=== PATIENT | female | born 1975 | race Caucasian/White ===

== ENCOUNTER 2020-01-16 16:24 | Outpatient (REF) | payer OTHER, SELFPAY | END 2020-01-16 16:25 | disposition home or self-care (01) | LOC: HO.LAB 16:24 | PROVIDERS: Visit Provider Internal Medicine | DX: Z20.828 Contact with and (suspected) exposure to other viral communicable diseases (principal) | CPT/HCPCS: C9803; U0003 ==

== ENCOUNTER 2020-02-06 13:02 | Outpatient (REF) | payer OTHER, SELFPAY ==
--- NOTE | 2020-02-06 | ECG_ITS ---
Test Reason : QTC PROLONGATION Blood Pressure : / mmHG Vent. Rate : 069 BPM Atrial Rate : 069 BPM P-R Int : 150 ms QRS Dur : 078 ms QT Int : 416 ms P-R-T Axes : 028 054 008 degrees QTc Int : 445 ms Normal sinus rhythm with sinus arrhythmia ST & T wave abnormality, consider anterolateral ischemia Abnormal ECG No previous ECGs available Referred By: Joan Tripathi Electronically Signed By:KYLEE STEPHENSON MD
[2020-02-06 14:18] LABS: MANUAL DIFF FLAG NO
[2020-02-06 14:23] LABS: Basophils Percent Auto 0.4 % (0-2); Eosinophils Absolute Auto 0.1 X10*3/uL (0.0-0.4); Eosinophils Percent Auto 0.7 % (0-4); Hematocrit 41.4 % (37-47); Imm Gran Abs Auto 0.02 X10*3/uL (0.00-0.03); Imm Gran Pct Auto 0.3 % (0.0-0.4); Lymphocytes Absolute Auto 1.8 X10*3/uL (1.2-4.9); Lymphocytes Percent Auto 25.5 % (20-40); Mean Corpuscular HGB Conc 33.8 g/dl (31.0-35.0); Mean Corpuscular Hemoglobin 32.1 pg (27.0-33.0); Mean Platelet Volume 9.3 fL (9.4-12.3); Monocytes Absolute Auto 0.4 X10*3/uL (0.1-1.2); Neutrophils Absolute Auto 4.9 X10*3/uL (2.0-8.3); Neutrophils Percent Auto 68.1 % (45-73); Platelet Count 259 X10*3/uL (160-400); Red Blood Count 4.36 X10*6/uL (4.20-5.50); Red Cell Distribution Width 11.9 % (11.0-16.0); White Blood Count 7.1 X10*3/uL (4.8-10.8)
[2020-02-06 14:33] LABS: Estimated Average Glucose 111 mg/dL; Hemoglobin A1c % 5.5 %
[2020-02-06 14:57] LABS: Alanine Aminotransferase 14 U/L (0-31); Albumin Level 4.1 g/dL (3.5-5.0); Alkaline Phosphatase 87 U/L (39-117); Anion Gap 15 (12-20); Aspartate Amino Transferase 17 U/L (5-31); Bilirubin Total 0.9 mg/dL (0.0-1.0); Blood Urea Nitrogen 10 mg/dL (9-16); Calcium 8.6 mg/dL (8.4-10.2); Carbon Dioxide 26 mmol/L (22-29); Chloride 102 mmol/L (96-108); Cholesterol 167 mg/dL; Estimated Glomerular Filt Rate > 60; Glucose Random 91 mg/dL (60-115); HDL Cholesterol 60 mg/dL; Iron 90 mcg/dL (30-160); LDL Cholesterol Calculated 90 mg/dl; Magnesium 1.8 mg/dL (1.6-2.6); Percent Iron Saturation 27 % (15-50); Potassium 4.1 mmol/l (3.3-5.1); Sodium 139 mmol/L (135-145); Total Iron Binding Capacity 329 mcg/dL (228-428); Triglycerides 88 mg/dL; Unsaturated Iron Binding 239 ug/dL
[2020-02-06 15:23] LABS: Ferritin 82 ng/mL (10-250); Free T4 (Free Thyroxine) 0.99 ng/dL (0.71-1.85); Thyroid Stimulating Hormone 1.84 uIU/mL (0.32-4.0); Vitamin D 25-OH Total 27.3 ng/mL (>30)
[2020-02-06 15:37] LABS: Folate > 20.0 ng/mL (> or = 4.0); Vitamin B12 848 pg/mL (200-900)
== END 2020-02-06 13:03 | disposition home or self-care (01) ==
LOC: HO.LAB 13:02
PROVIDERS: PCP Family Medicine; Visit Provider Clinical Nurse Specialist Psychiatric/Mental Health, Adult
DX: F33.2 Major depressive disorder, recurrent severe without psychotic features (principal); F43.10 Post-traumatic stress disorder, unspecified
CPT/HCPCS: 36415; 80053; 80061; 82306; 82607; 82728; 82746; 83036; 83540; 83735; 84439; 84443; 85025; 93005

== ENCOUNTER 2020-02-13 10:45 | Outpatient (RCR) | payer OTHER, SELFPAY ==
[2020-02-03 12:58] VITALS: BMI 38.9
--- NOTE | 2020-02-03 13:13 | PC.ADMIT ---
Patient is a 44 year old female who started PHP today d/t increase in depression and PTSD symptoms and reports AH and VH related to harm herself. Pt reports AH and VH have started for the past year and began to intensify recently. Pt does not want to harm herself thus seeks out safety with her when needed. Pt reports her is supportive however he does not understand depression. Pt stated she is attending PHP because, I don't want to . Pt reports she wants the AH and VH to go away. Pt denied SI, AH, VH at present. She gave verbal permission to email her a copy of her safety plan. 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 She denies hx of SA however reports hx of self harming behaviors, cutting self, last time 2 years ago. Medications reconciled with patient and patient's pharmacy and she reports taking medication as prescribed. She reports recent medication changes with her prescriber including d/t Effexor and is now on Duloxetine. Also Seroquel was recently added back for sleep.
--- NOTE | 2020-02-03 15:52 | HO.PS.ADMBH ---
HPI Chief Complaint: depression Sources of Information: patient interviewed and chart reviewed HPI Narrative: The voices are not my voice. They tell me I don't deserve to live, I make everything worse. I have visual flashes of ways to harm myself. No one else in group has these, do I belong here? 44 yo female, hx of PTSD and severe recurrent major depression. Pt experiencing increasing sx of depression, anxiety and auditory/visual perceptual alterations telling her she does not deserve to live. Reports depression to be like a giant black hole . PTSD sx exacerbated as well including nightmares, flashbacks, visual flashes of methods to take her life, feeling hopeless and helpless, fatigues and having dissociative periods. Reports an increase in sleep as sleep protects her from feeling the emotional pain. Possible precipitants- Effexor change to Cymbalta a few weeks ago Past Psychiatric History: Therapy since 2011. Currently working with therapy at [facility] and psychopharmacology Rufino Kaur. Hx of CHD POD admit for 5 days approx 1 year ago where Abilify was initiated and helpful. Recent titration to 7.5 mg from 5 mg over the past 2 weeks has not been helpful. Trials: Effexor Medical Evaluation Reviewed: No (NA) [facility] Medical History (Updated 02/04/20 @ 12:35 by Joan Tripathi APRN) Arthritis Fibromyalgia PTSD (post-traumatic stress disorder) Recurrent major depression-severe Rotator cuff dysfunction Severe recurrent major depression with psychotic features Surgical History History of sleeve gastrectomy Hx of cholecystectomy Family History: Depression, Psychosis, Alcoholism Social History: , no children. Attending graduate school for [employer]. 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 Substance History: Denies Trauma History: Emotional, Physical, Sexual, Wittness to trauma Diagnostics Vital Signs (24Hr): Body Mass Index 38.9 Labs Labs: Not in ~ 1year. Will order full labs/EKG. Pt to completed 02/04/20 after group is completed. Meds/Allergies Meds Narrative: Cymbalta 60 mg daily Abilify 7.5 mg daily Seroquel 25 mg HS Zyrtec 10 mg daily Folic Acid 1 mg daily Vitamin B12 daily MVI Allergies Allergies Allergy/AdvReac Type Severity Reaction Status Date / Time mint Allergy Itching Verified 02/03/20 12:55 oxycodone AdvReac Hallucinati Verified 02/03/20 12:55 ons Mental Status Exam Mental Status Exam Patient Appearance: Well Grooomed, Fatigued and Appropriate Patient Orientation: Person, Place, Time and Situation Level of Consciousness: Awake, Appropriate and Alert Patient Behavior: Appropriate, Talkative, Cooperative, Anxious, Fatigued, Good Eye Contact and Crying Mood Description: Depressed, Anxious, Nervous and Apprehensive Affect Description: Flat Patient Cognition Impaired: No Ability to Follow Directions: Excellent Speech Pattern: Clear, Perseverating, Spontaneous Speech, Coherent and Soft-Spoken Memory Description: Intact Hallucinations: Auditory (voices telling her others would be better off if she were not here) and Visual (flashes of how to commit suicide) Perceptual Disturbances: Depersonalization and Hallucinations Thought Process: Distracted and Rumination Thought Content: positive for [place], positive for Obsessional Thoughts, positive for Circumstantial, positive for Perseveration, positive for Preoccupation and positive for Suicidal Ideation (passive, without plan or intent) Depressive Symptoms: Increased Anxiety, Diff. Making Decisions, Changes in Appetite, Crying Spells, Sleeping More Than Usual, Loss of Int. in Activity, Feelings of Worthlessness, Hopelessness, Isolating-Friends/Family, Feelings of Guilt, Unhappiness, Thoughts of /Suicide (passive, without plan, intent), Low Self Esteem, Loss of Energy and Difficulty Concentrating Judgement: Good Assessment & Plan Assessment & Plan (1) PTSD (post-traumatic stress disorder): Status: Acute Code(s): F43.10 - Post-traumatic stress disorder, unspecified Assessment and Plan: Continue PHP plan of care Education provided on perceptual alterations. Encouraged pt to discuss these sx in group as part of PTSD sx. (2) Severe recurrent major depression with psychotic features: Status: Acute Code(s): F33.3 - Major depressive disorder, recurrent, severe with psychotic symptoms Assessment and Plan: -Increase Abilify to 15 mg hs. Pt reports intrusive voices, visions which is having an adverse effect on participation in group. On 02/04/20 labs, EKG as pt reports no eval of diagnostics in approx 1 year. Patient educated on: diagnosis, medication risk/benefits and therapeutic strategies Informed Consent: understands and further education needed Reason for continued partial hosp. stay Substantial Risk for: harm to self, inability to function and rapid decompensation Certification I certify that partial hospital treatment is medically necessary due to the symptoms and problems resulting from the patient's mental illness and the failure to treat the patient at the partial hospital level of care would likely result in the patient requiring inpatient psychiatric care which could not be prevented at a less intensive level of care.
--- NOTE | 2020-02-11 14:55 | P.PNPSP_ITS ---
Subjective Subjective Date of Service: 02/11/20 Reason For Visit: depression Interim History: Mee reports auditory perceptual alterations are extinguished. Reports insomnia-asked her to trial Abilify in the a.m. vs hs. She will hold tonights dose and trial the Abilify tomorrow a.m. Discussed sleep sx a few weeks ago with increase in daytime napping, overall increase in sleep, then unable to sleep with discontinuation and re-addition of Seroquel. Plans discharge on 02/12. Has OP appt on 02/16. 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 Cites having to make daily goals and if they are appropriate for her along with participation in discharge planning. States she began the program confused and feels she has been attempting to catch up. She is wondering if she utilized her time well, if she did the program correctly and if she will need to repeat it. The core problem she identifies is feeling different from the rest of the group as only one other person experienced perceptual alterations. Questions if she has enough skills to manage sx and wonders if sx will come back. Discussed tapering back Abilify when she sees her provider next week to achieve maximum beneft with minimal dosing Medication Compliance: Yes Side effects from medications: No Attending Groups: Yes Review of Systems Psychiatric: Reports abnormal sleep pattern, Reports anxiety, Reports depression, Reports hopelessness and Reports irritability Mental Status Exam Mental Status Exam Patient Orientation: Person, Place, Time and Situation Level of Consciousness: Awake, Appropriate and Alert Patient Behavior: Appropriate, Talkative, Cooperative and Anxious Mood Description: Withdrawn, Depressed, Anxious, Angry and Apprehensive Affect Description: Constricted Patient Cognition Impaired: No Ability to Follow Directions: Excellent Speech Pattern: Appropriate, Spontaneous Speech and Coherent Memory Description: Intact Hallucinations: None Delusions: Not Present Thought Process: Intact and Goal Oriented Thought Content: positive for Intact Depressive Symptoms: Increased Anxiety, Insomnia, Diff. Making Decisions, Increased Irritability, Difficulty Sleeping, Feelings of Worthlessness, Hopeles sness, Feelings of Guilt, Unhappiness, Low Self Esteem and Loss of Energy Judgement: Good Diagnostics Vital Signs (24Hr): Body Mass Index 38.9 Assessment & Plan Assessment & Plan (1) Severe recurrent major depression with psychotic features: Status: Acute Code(s): F33.3 - Major depressive disorder, recurrent, severe with psychotic symptoms Assessment and Plan: - Reports auditory perceptual alterations are extinguished. - Reports insomnia - Change timing of Abilify to a.m. Continue at 15 mg -Pt will call tomorrow so we may assess her sleep. (2) PTSD (post-traumatic stress disorder): Status: Acute Code(s): F43.10 - Post-traumatic stress disorder, unspecified Assessment and Plan: - Continue PHP plan of care. Discussed pt's concerns with the team today. She has declined to remain in program longer, citing the need to return to work due to financial constraints. Certification I certify that partial hospital treatment is medically necessary due to the symptoms and problems resulting from the patient's mental illness and the failure to treat the patient at the partial hospital level of care would likely result in the patient requiring inpatient psychiatric care which could not be prevented at a less intensive level of care. Greater than 50% of the session was spent on counseling and/or coordination of care Discharge Plan Discharge Attending provider: Alexander Mock Medications: No Action quetiapine [Seroquel] 25 mg Tablet 25 mg PO BEDTIME RF: 0 Flintstones Multivitamin Tablet,Chewable 1 tab PO DAILY RF: 0 aripiprazole [Abilify] 15 mg Tablet 7.5 mg PO BEDTIME RF: 0 duloxetine 60 mg Capsule,Delayed Release(Dr/Ec) 60 mg PO DAILY RF: 0 Zyrtec 10 mg Capsule 10 mg PO BEDTIME RF: 0 Telehealth Telehealth Location of provider rendering services: practice address Location of patient: address on file Patient Identification confirmed using: Name, : Yes Telehealth method: voice only Patient verbally consented to treatment: Yes Patient verbally consented to billing insurance company: Yes Patient informed of any privacy concerns related to visit: Yes
--- NOTE | 2020-02-12 09:18 | PC.NURSE ---
Pt did not attend morning meeting. LM for pt to call back.
--- NOTE | 2020-02-12 11:01 | PC.NURSE ---
Pt did picking supervisor on a second attempt. Called pt's (emergency contact) who had pt get on the phone. She reported she had not slept and didn't hear her phone. She reported she is safe but had to get some sleep. She will be in tomorrow.
--- NOTE | 2020-02-13 12:28 | HO.PHPPROGNO ---
Subjective Subjective Date of Service: 02/13/20 Reason For Visit: depression Interim History: Mee continues to report insomnia. Reports that her usual sleep pattern is to begin to feel tired around 6:30pm, to bed by 7-8pm asleep usually by 9pm, awake 1-2 times for fluids, snacks and to use the bathroom, then awake for the day by 6am. Reports no caffeine after 2pm, no evening alcohol or nicotine, no exercise activity prior to sleep, no devices after 6:30pm with blue light, no large meals (s/p bariatric surgery). Pt reports these episodes of insomnia occur at least a few times per year. Encouraged pt to track these to possibly identify a pattern. Reports when she retires and goes to bed she has many anxious thoughts that make her mind wander and make her feel surreal , she will recall something, relate it to something she saw on TV, relate that to something someone said to her and her mind wanders. Denies worry of any sort at the present time. 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 Class was completed at 6:30pm, she attended a winter concert on line at 7pm and was in bed by 8pm. She was awake until 2am, reports 1-2 hours sleep then awake by 4:30am. She did take Abilify yesterday a.m. dozed for 2 hours then was awake for the day. She did not take Abilify today. Discussed medication, medical, therapy intervention for sx. Discussed a combination of treatments to assist in sx mgt, not just medications. Sleep hygiene reviewed. Medication Compliance: No Side effects from medications: No Attending Groups: Yes Review of Systems Constitutional: Reports difficulty sleeping Psychiatric: Reports abnormal sleep pattern and Reports depression Mental Status Exam Mental Status Exam Patient Orientation: Person, Place, Time and Situation Level of Consciousness: Awake, Appropriate and Alert Patient Behavior: Appropriate, Passive and Timid Mood Description: Anxious, Nervous and Apprehensive Affect Description: Constricted Patient Cognition Impaired: No Ability to Follow Directions: Good Speech Pattern: Clear, Appropriate, Spontaneous Speech, Coherent and Soft-Spoken Memory Description: Intact Hallucinations: None Delusions: Not Present Thought Process: Intact and Distracted Thought Content: positive for Intact, positive for [place] and positive for Circumstantial Depressive Symptoms: Insomnia, Difficulty Sleeping and Low Self Esteem Judgement: Fair Diagnostics Vital Signs (24Hr): Body Mass Index 38.9 Labs Labs: completed. Sent to PCP today (Labs, EKG) by Courtney Lopez RN Assessment & Plan Assessment & Plan (1) Severe recurrent major depression with psychotic features: Status: Acute Code(s): F33.3 - Major depressive disorder, recurrent, severe with psychotic symptoms (2) PTSD (post-traumatic stress disorder): Status: Acute Code(s): F43.10 - Post-traumatic stress disorder, unspecified (3) Insomnia: Status: Acute Code(s): G47.00 - Insomnia, unspecified Assessment and Plan: - Decrease Abilify to 7.5 mg. Return dosing to HS. -Increase Seroquel to 50 mg HS -Ramelteon 8 mg hs prn insomnia #7 tabs -Call to PCP, Dr. Vega's office to request sleep eval. They agree and will call pt when they schedule this. -Education provided RE Sleep Hygiene and use of therapies to assist in symptom mgt. Certification I certify that partial hospital treatment is medically necessary due to the symptoms and problems resulting from the patient's mental illness and the failure to treat the patient at the partial hospital level of care would likely result in the patient requiring inpatient psychiatric care which could not be prevented at a less intensive level of care. Greater than 50% of the session was spent on counseling and/or coordination of care Discharge Plan Discharge Attending provider: Alexander Mock Medications: New ramelteon 8 mg tablet 8 mg PO BEDTIME PRN (Reason: sleep) Qty: 7 RF: 0 No Action quetiapine [Seroquel] 25 mg Tablet 25 mg PO BEDTIME RF: 0 Flintstones Multivitamin Tablet,Chewable 1 tab PO DAILY RF: 0 aripiprazole [Abilify] 15 mg Tablet 7.5 mg PO BEDTIME RF: 0 duloxetine 60 mg Capsule,Delayed Release(Dr/Ec) 60 mg PO DAILY RF: 0 Zyrtec 10 mg Capsule 10 mg PO BEDTIME RF: 0 Telehealth Telehealth Location of provider rendering services: practice address Location of patient: address on file Patient Identification confirmed using: Name, : Yes Telehealth method: voice only Patient verbally consented to treatment: Yes Patient verbally consented to billing insurance company: Yes Patient informed of any privacy concerns related to visit: Yes Time spent with patient (mins): 30
--- NOTE | 2020-02-13 13:15 | PC.NURSE ---
Spoke to Carey STRAUSS from the office of patient's PCP Natasha Vega MD to confirm they received faxed EKG and Labs results. I was told to fax them to a different fax number as it can take a few days to receive with the fax number that I used. New fax number [phone]. They will call me if they did not receive the results. Reviewed EKG results over the phone with Carey STRAUSS as well. Also per [facility] pain clinic patient will need a referral from her PCP. Carey STRAUSS is aware and will review with patient's PCP to obtain a referral for patient.
== END 2020-02-13 23:55 | disposition home or self-care (01) ==
LOC: HO.PHPA 10:45
PROVIDERS: Visit Provider Psychiatry & Neurology Psychiatry
DX: F33.3 Major depressive disorder, recurrent, severe with psychotic symptoms (principal); F43.10 Post-traumatic stress disorder, unspecified; G47.00 Insomnia, unspecified
CPT/HCPCS: 90792; 90853; 99213; 99214

== ENCOUNTER 2023-07-04 07:56 | Emergency (ER) | payer OTHER, SELFPAY ==
--- NOTE | ~2023-07-04 | XR_ITS ---
EXAMINATION: XR SHOULDER, LEFT CLINICAL INFORMATION: Pain after falling COMPARISON: None available. TECHNIQUE: AP external rotation, Grashey, scapular Y, and axillary views of the left shoulder. FINDINGS: There appears to be cortical discontinuity in the scapula at the level of the bony glenoid suspicious for fracture. The proximal humerus is intact and the shoulder joint is not dislocated. There is degenerative change observed at the level of the left AC joint. XR/XR shoulder LT min 2V IMPRESSION: Nondisplaced fracture of the bony glenoid. Thin section CT may be helpful for further evaluation.
[2023-07-04 08:21] VITALS: BP 116/70; BP 125/83; PULSE 72; PULSE 80; RESP 19; TEMP 35.8; O2SAT 96; O2SAT 98; BMI 49.6
--- NOTE | 2023-07-04 08:41 | ED.FALL ---
HPI - Fall General Chief Complaint: Fall Stated Complaint: FALL,L SHOULDER PAIN PER EMS Time Seen by Provider: 07/04/23 08:01 Source: patient and EMS Mode of arrival: EMS Limitations: no limitations History of Present Illness HPI Narrative: 47-year-old female with history of morbid obesity, PTSD, depression, who presents to the ER for evaluation of left shoulder pain after she tripped over her shoe laces this morning and fell with her arms outstretched in front of her. She sustained abrasions to her bilateral palms and injured her left shoulder. She heard a pop and had has limited ROM since. She reports history of similar injury in the past and hurt her right rotator cuff in this manner. She denies hitting her head or losing consciousness. She denies any headache or neck pain. She states the shoulder pain does extend up into the left lateral side of her neck. MD complaint: fall Onset (ago): minute(s) Fall from: standing Fall witnessed: no Place fall occurred: street Loss of consciousness: none Prolonged down time: no Symptoms prior to fall: none Context: tripped/slipped Location of injury - extremities: left: shoulder Associated symptoms (after fall): denies Related Data Home Medications ?Medication ?Instructions ?Recorded ?Confirmed aripiprazole 15 mg tablet (Abilify) 7.5 mg PO BEDTIME 02/03/20 02/03/20 cetirizine 10 mg capsule (Zyrtec) 10 mg PO BEDTIME 02/03/20 02/03/20 duloxetine 60 mg capsule,delayed 60 mg PO DAILY 02/03/20 02/03/20 release pediatric multivitamin 1 tab PO DAILY 02/03/20 02/03/20 (Flintstones Multivitamin chewable tablet) quetiapine 25 mg tablet (Seroquel) 25 mg PO BEDTIME 02/03/20 02/03/20 Previous Rx's ?Medication ?Instructions ?Recorded ramelteon 8 mg tablet 8 mg PO BEDTIME PRN sleep #7 tabs 02/13/20 morphine 15 mg immediate release 15 mg PO Q8H PRN severe pain 07/04/23 tablet (scale score 7-10) #10 tabs Allergies Allergy/AdvReac Type Severity Reaction Status Date / Time mint Allergy Itching Verified 07/04/23 08:32 oxycodone AdvReac Hallucinati Verified 07/04/23 08:32 ons Review of Systems Review of Systems: Yes all other systems are reviewed and are negative [facility] Past Medical History Medical History (Updated 07/04/23 @ 09:47 by TOMI Maciel) Insomnia Severe recurrent major depression with psychotic features Recurrent major depression-severe PTSD (post-traumatic stress disorder) Rotator cuff dysfunction Arthritis Fibromyalgia Surgical History History of sleeve gastrectomy Hx of cholecystectomy Social History Social History Household Members: Spouse Advance Directives: Yes Advance Directives Information Provided: No Advance Directives on File: No Do you have a plan to hurt others: No Plan Physical Exam Vital Signs: Vital Signs: Last Vital Signs Temp 96.5 F L 07/04/23 08:21 Pulse 72 07/04/23 08:21 Resp 19 07/04/23 08:21 BP 116/70 07/04/23 08:21 Pulse Ox 98 07/04/23 08:21 O2 Del Method Room Air 07/04/23 08:21 BMI result Body Mass Index 49.6 Appearance: Alert. Oriented X3. No acute distress. HEENT: normal inspection CVS: Normal heart rate and rhythm. Pulses normal. Respiratory: No respiratory distress. Skin: Skin warm and dry. Normal skin color. Normal skin turgor. No rashes. Extremities: Left upper extremity held in in flexion and adduction, diffuse tenderness of the shoulder with inability to tell if it is dislocated or not. No gross deformity. Neurovascularly intact distally. Nontender left elbow, left wrist. Neuro: Oriented X 3. No motor deficit. No sensory deficit. Medications Administered Discontinued Medications Generic Name Dose Route Start Last Admin Trade Name Freq PRN Reason Stop Dose Admin Acetaminophen 975 mg 07/04/23 09:35 07/04/23 09:48 Acetaminophen 325 Mg Tablet PO 07/04/23 09:36 975 mg ONCE ONE Administration Ibuprofen 600 mg 07/04/23 09:35 07/04/23 09:48 Ibuprofen 600 Mg Tablet PO 07/04/23 09:36 600 mg ONCE ONE Administration Medical Decision Making Medical Decision Making MDM Narrative: 47-year-old female presents to the ER for evaluation of left shoulder pain after falling on outstretched hand. Very limited mobility due to pain. She has tenderness to the entire shoulder. She is neurovascularly intact distally. No gross deformity although with her soft tissue it is difficult to tell if the shoulder is in location or not. X-rays were performed which shows no dislocation or proximal humerus fracture but there is a likely glenoid fracture. CT scan was done of the shoulder to further characterize. This did show a mildly comminuted displaced fracture of the anterior inferior glenoid. There is osteoarthrosis of the AC joint as well. Patient was placed in a sling for comfort. She has an orthopedist at [place] that she would like to follow-up with. Give results of CT scan so she can follow-up elsewhere. She is stable for discharge home. Differential Diagnosis Differential Diagnoses: The differential diagnosis associated with the presentation includes Proximal humerus fracture, shoulder dislocation, scapular fracture, ligamentous injury/rotator cuff injury Independent Interpretation I performed an independent interpretation of an: Plain X-Ray and CT Scan Interpretation: X-ray with glenoid fracture, no appreciated proximal humerus fracture CT scan with glenoid fracture no other fractures appreciated Radiology Impression Discussion of test interpretation with radiology: I have reviewed the radiologist's reading. Radiologist Impression: EXAMINATION: XR SHOULDER, LEFT CLINICAL INFORMATION: Pain after falling COMPARISON: None available. TECHNIQUE: AP external rotation, Grashey, scapular Y, and axillary views of the left shoulder. FINDINGS: There appears to be cortical discontinuity in the scapula at the level of the bony glenoid suspicious for fracture. The proximal humerus is intact and the shoulder joint is not dislocated. There is degenerative change observed at the level of the left AC joint. XR/XR shoulder LT min 2V IMPRESSION: Nondisplaced fracture of the bony glenoid. Thin section CT may be helpful for further evaluation. EXAMINATION: CT SCAN LEFT SHOULDER WITHOUT CONTRAST CLINICAL INFORMATION: Glenoid fracture on x-ray. COMPARISON: X-rays of the left shoulder performed same day. TECHNIQUE: CT scan of the left shoulder was performed with reconstruction imaging performed at the acquisition workstation. This CT examination was performed using dose optimization techniques as appropriate, variously including the following: *Automated exposure control *Adjustment of mA and/or kV according to patient size (this includes techniques or standardized protocols for targeted exams where dose is matched to indication/reason for exam; i.e. extremities or head) *Use of iterative reconstruction technique DLP 457 mGy-cm FINDINGS: There is a mildly comminuted displaced fracture of the anterior inferior glenoid. The fracture fragments are displaced medially and anteriorly with joint depression measuring up to 4 mm. The anterior fracture fragment measures up to 11 mm transverse. The fracture fragments together measure up to 2.2 cm craniocaudal. This involves the lower two-thirds portion of the anterior glenoid. There is a joint effusion. No additional fractures. There is moderate hypertrophic osteoarthritis of acromioclavicular joint. Minimal left apical pleural thickening. CT/CT shoulder LT wo IV con IMPRESSION: 1. Mildly comminuted displaced fracture of the anterior inferior glenoid. 2. Osteoarthritis of the acromioclavicular joint. Independent Historian Clinical information obtained from an independent historian. History obtained from or confirmed by: EMS External Record Review External record reviewed: Outpatient record and Prior outpatient labs Prescription Management I considered prescription management with: Pain Medication Chronic Conditions Patient?s care impacted by: Other (morbid obesity) Discharge Plan Discharge Clinical Impression: Glenoid fracture of shoulder Qualifiers: Encounter type: initial encounter Fracture type: closed Laterality: left Qualified Code(s): S42.142A - Displaced fracture of glenoid cavity of scapula, left shoulder, initial encounter for closed fracture Patient Disposition: Home, Self-Care Instructions: Scapular Fracture (ED) Additional Instructions: Where the provided sling for immobilization. Recommend the prescribed anti-inflammatory ibuprofen every fvn-lb-qwwuv hours as needed for wvgt-zg-ugacelco pain. Use ice several times a day to help with pain and swelling. Take the prescribed morphine as needed for severe pain only. Do not drive after taking morphine. Follow-up with your orthopedic for further evaluation and treatment. EXAMINATION: CT SCAN LEFT SHOULDER WITHOUT CONTRAST CLINICAL INFORMATION: Glenoid fracture on x-ray. COMPARISON: X-rays of the left shoulder performed same day. FINDINGS: There is a mildly comminuted displaced fracture of the anterior inferior glenoid. The fracture fragments are displaced medially and anteriorly with joint depression measuring up to 4 mm. The anterior fracture fragment measures up to 11 mm transverse. The fracture fragments together measure up to 2.2 cm craniocaudal. This involves the ower two-thirds portion of the anterior glenoid. There is a joint effusion. No additional fractures. There is moderate hypertrophic osteoarthritis of acromioclavicular joint. Minimal left apical pleural thickening. CT/CT shoulder LT wo IV con IMPRESSION: 1. Mildly comminuted displaced fracture of the anterior inferior glenoid. 2. Osteoarthritis of the acromioclavicular joint. Prescriptions: New morphine 15 mg tablet 15 mg PO Q8H PRN (Reason: severe pain (scale score 7-10)) Qty: 10 0RF Rx Instructions: Partial Fill upon patient request. No Action quetiapine [Seroquel] 25 mg Tablet 25 mg PO BEDTIME Flintstones Multivitamin Tablet,Chewable 1 tab PO DAILY aripiprazole [Abilify] 15 mg Tablet 7.5 mg PO BEDTIME Rx Instructions: Take 1/2 tab daily with food duloxetine 60 mg Capsule,Delayed Release(Dr/Ec) 60 mg PO DAILY Zyrtec 10 mg Capsule 10 mg PO BEDTIME ramelteon 8 mg tablet 8 mg PO BEDTIME PRN (Reason: sleep) Qty: 7 0RF Print Language: Vincentian
[2023-07-04] MEDS: Ibuprofen 600 MG TABLET PO (09:48)
[2023-07-04] MEDS: Acetaminophen 325 MG TABLET 975 MG PO (09:48)
--- NOTE | 2023-07-04 12:09 | PC.NURSE ---
wounds to bilateral palms cleaned, bacitracin applied, and wrapped w non adherant dressings per provider request.
[2023-07-04 12:10] VITALS: BP 138/84; PULSE 67; RESP 18; TEMP 36.6; O2SAT 98
== END 2023-07-04 12:11 | disposition home or self-care (01) ==
PROVIDERS: Emergency Provider Emergency Medicine; PCP Family Medicine
DX: S42.142A Displaced fracture of glenoid cavity of scapula, left shoulder, initial encounter for closed fracture (principal); S60.512A Abrasion of left hand, initial encounter; W01.0XXA Fall on same level from slipping, tripping and stumbling without subsequent striking against object, initial encounter; Y93.89 Activity, other specified; Y92.480 Sidewalk as the place of occurrence of the external cause; Y99.9 Unspecified external cause status
CPT/HCPCS: 73030; 73200; 99283; 99284

== ENCOUNTER 2024-02-20 13:05 | Emergency (ER) | payer OTHER, SELFPAY ==
--- NOTE | ~2024-02-20 | CT_ITS ---
EXAMINATION: CT HEAD WITHOUT IV CONTRAST CT MAXILLOFACIAL WITHOUT IV CONTRAST INDICATION: Facial trauma, dizziness COMPARISON: None available. TECHNIQUE: Multidetector CT acquisitions of the head and maxillofacial region were obtained without IV contrast. Multiplanar reformats were acquired and utilized for image interpretation. This CT examination was performed using dose optimization techniques as appropriate, variously including the following: *Automated exposure control *Adjustment of mA and/or kV according to patient size (this includes techniques or standardized protocols for targeted exams where dose is matched to indication/reason for exam; i.e. extremities or head) *Use of iterative reconstruction technique FINDINGS: HEAD: No acute intracranial hemorrhage or infarct. The scanlon-white matter differentiation is preserved. No midline shift or hydrocephalus. No acute extra-axial fluid collections. The osseous structures are unremarkable. MAXILLOFACIAL: Motion artifact is present. The mandible, maxilla, pterygoid plates, nasal bones, zygomatic arches, paranasal sinus venegas, and bony orbits are intact. No acute osseous abnormality within the maxillofacial region. The paranasal sinuses and mastoid air cells remain well aerated. No significant soft tissue findings. CT/CT facial bones wo IV con IMPRESSION: Within the limitations of the study, 1. No acute intracranial pathology. 2. No acute maxillofacial fracture. Electronically signed by: Jose Kim MD 02/20/2024 04:10 PM [facility] SCHNE[facility]
--- NOTE | ~2024-02-20 | CT_ITS ---
EXAMINATION: CT HEAD WITHOUT IV CONTRAST CT MAXILLOFACIAL WITHOUT IV CONTRAST INDICATION: Facial trauma, dizziness COMPARISON: None available. TECHNIQUE: Multidetector CT acquisitions of the head and maxillofacial region were obtained without IV contrast. Multiplanar reformats were acquired and utilized for image interpretation. This CT examination was performed using dose optimization techniques as appropriate, variously including the following: *Automated exposure control *Adjustment of mA and/or kV according to patient size (this includes techniques or standardized protocols for targeted exams where dose is matched to indication/reason for exam; i.e. extremities or head) *Use of iterative reconstruction technique FINDINGS: HEAD: No acute intracranial hemorrhage or infarct. The scanlon-white matter differentiation is preserved. No midline shift or hydrocephalus. No acute extra-axial fluid collections. The osseous structures are unremarkable. MAXILLOFACIAL: Motion artifact is present. The mandible, maxilla, pterygoid plates, nasal bones, zygomatic arches, paranasal sinus venegas, and bony orbits are intact. No acute osseous abnormality within the maxillofacial region. The paranasal sinuses and mastoid air cells remain well aerated. No significant soft tissue findings. CT/CT head/brain wo IV con IMPRESSION: Within the limitations of the study, 1. No acute intracranial pathology. 2. No acute maxillofacial fracture. Electronically signed by: Jose Kim MD 02/20/2024 04:10 PM PETE
--- OUTSIDE RECORDS SUMMARY | 2024-02-20 13:09 | XMS_ITS | Continuity of Care Document ---
Author Organization [facility] Address [address] [place], [place] Phone [phone] Care Team Providers Care Holter Scanning Technician Name Role Phone Natasha Vega MD Care Team Information Receive r GISELLE Arzola M.D. Care Team Information Rec eiver Unavailable Natasha Vega MD Primary Care Physician Unavai lable Problems Active Problems Provider Date Body mass index 40+ - severely obese Giselle Trammell M.D. Onset: 01/02/2024 Social History Type Date Description Comments Sex Unknown Allergies and adverse reactions Active Allergies Criticality Reaction Severity Comments Date Oxycontin Unable to assess criticality 11/01/2023 Mint Unable to assess criticality 11/01/2023 Omeprazole Unable to assess criticality wt gain 01/02/2024 Medications Active Medications SIG Qnty Indications Order ing Provider Date Metformin HCL [id number] Tablets ER 24HR 1 tab by mouth every day 90tabs Giselle Trammell M.D. 01/11/2024 Wegovy0.25mg/0.5ML Solution Auto-Inject inject 0.25mg subcutaneously once a week 2ml Z68.41 Giselle Trammell M.D. 01/02/2024 Diclofenac Sodium1% Gel Natasha Vega MD Zyrtec Jzxczxc63mr Tablets tab by mouth every day Unknown Vit D3 25mcg x1/wk Unknown 00 Fluticasone Xbozoabhvl31xgu/Act Suspension [place] 2 Sprays By Nasal Route Daily Unknown Duloxetine HPC12hj Caps DR Part Take 1 Capsule By Mouth Daily In The Morning With Food Unknown Ajqdpfwjkfdr1ux Tablets Take 1 Tablet By Mouth Once A Day (With 5 MG Tablet) Unknown Quetiapine Ykcwdbpz58uj Tablets 1@hs Unknown Doxazosin Jwtadvfv8jv Tablets Take 1 Tablet By Mouth Every Day AT Night Unknown Duloxetine LGY50gd Caps DR Part Take 1 Capsule By Mouth Every Afternoon With Food. Total Daily Dose Of 90MG Unknown Emriqepoar442tk Capsules Take 2 Capsules By Mouth 3 Times A Day. Natasha Vega MD Kmptzmqeswhm6bz Tablets Take 1 Tablet By Mouth Once A Day With 2MG. Total Daily Dose Of 7MG Unknown History Medications Ynrnbrmbfx76bq Capsules DR Unknown - 01/02/2024 Vrjxytfexp0gx Tablets Unknown - 01/02/[address] Take 1 Capsule By Mouth Every Day Unknown - 01/02/2024 Zpoxlittpn97gw Tablets Unknown - 01/02/2024 Morphine Kipdovo59de Tablets Take 1 Tab By Mouth Every 6 Hours as Needed For Pain Natasha Vega MD - 01/02/2024 Bucymgtxeyw-Ntfdmra707-5 0mg/5ML Solution Take 5 Milliliters By Mouth 3 Times A Day as Needed For Cough Unknown - 01/02/2024
[2024-02-20 13:16] VITALS: BP 131/85; PULSE 92; RESP 16; TEMP 36; O2SAT 98; BMI 49.6
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
--- OUTSIDE RECORDS SUMMARY | 2024-02-20 15:37 | XMS_ITS | Continuity of Care Document ---
Author Organization [facility] Address [address] [facility] [address] [place], [place] Phone [phone] Care Team Providers Care Tentering Machine Off Bearer Name Role Phone Natasha Vega MD Care [...] Indications Order ing Provider Date Metformin HCL [id number] Tablets ER 24HR 1 tab by mouth every day 90tabs Giselle Trammell M.D. 01/11/2024 Wegovy0.25mg/0.5ML Solution Auto-Inject inject 0.25mg subcutaneously once a week 2ml Z68.41 Giselle Trammell M.D. 01/02/2024 Diclofenac Sodium1% Gel Natasha Vega MD Zyrtec Tgavszn27ie Tablets tab by mouth every day Unknown Vit D3 25mcg x1/wk Unknown 00 Fluticasone Cpimuttast70pfc/Act Suspension [place] 2 Sprays By Nasal Route Daily Unknown Duloxetine LSK85cr Caps DR Part Take 1 Capsule By Mouth Daily In The Morning With Food Unknown Bneeeanwrshu1bz Tablets Take 1 Tablet By Mouth Once A Day (With 5 MG Tablet) Unknown Quetiapine Scnccutd52ts Tablets 1@hs Unknown Doxazosin Ldjvqjkt5rj Tablets Take 1 Tablet By Mouth Every Day AT Night Unknown Duloxetine OLA30ug Caps DR Part Take 1 Capsule By Mouth Every Afternoon With Food. Total Daily Dose Of 90MG Unknown Dnlytmyjjh431kn Capsules Take 2 Capsules By Mouth 3 Times A Day. Natasha Vega MD Cjwoctwqljzp2wy Tablets Take 1 Tablet By Mouth Once A Day With 2MG. Total Daily Dose Of 7MG Unknown History Medications Sskewqbpet02uo Capsules DR Unknown - 01/02/2024 Gubnuzpaqd8rz Tablets Unknown - 01/02/[address] Take 1 Capsule By Mouth Every Day Unknown - 01/02/2024 Owgxqssbjs22uf Tablets Unknown - 01/02/2024 Morphine Fpogkzo87ko Tablets Take 1 Tab By Mouth Every 6 Hours as Needed For Pain Natasha Vega MD - 01/02/2024 Vloapsiquyf-Dtvheor582-5 0mg/5ML Solution Take 5 Milliliters By Mouth 3 Times A Day as Needed For Cough Unknown - 01/02/2024
[2024-02-20] MEDS: Ondansetron ODT 4 MG TAB.RAPDIS TRANSLINGU (15:38)
[2024-02-20 16:05] VITALS: BP 154/74; PULSE 86; RESP 20; TEMP 36.6; O2SAT 98
[2024-02-20 16:35] VITALS: BP 154/74; PULSE 86; RESP 20; TEMP 36.6; O2SAT 98
== END 2024-02-20 16:36 | disposition home or self-care (01) ==
PROVIDERS: Emergency Provider Emergency Medicine; PCP Family Medicine
DX: S09.90XA Unspecified injury of head, initial encounter (principal); R42 Dizziness and giddiness; R51.9 Headache, unspecified; R11.0 Nausea; X58.XXXA Exposure to other specified factors, initial encounter; Y93.89 Activity, other specified; Y92.213 High school as the place of occurrence of the external cause; Y99.0 Civilian activity done for income or pay; Z79.899 Other long term (current) drug therapy
CPT/HCPCS: 70450; 70486; 99284

== ENCOUNTER → 2024-02-22 09:38 | Outpatient (BNVA) | payer OTHER, SELFPAY | PROVIDERS: PCP Family Medicine; Visit Provider Registered Nurse | DX: S06.0X0A Concussion without loss of consciousness, initial encounter (principal); W50.0XXA Accidental hit or strike by another person, initial encounter; R42 Dizziness and giddiness; R51.9 Headache, unspecified; R11.0 Nausea | CPT/HCPCS: 99203 ==

== ENCOUNTER → 2024-02-26 08:49 | Outpatient (BNVA) | payer OTHER, SELFPAY | PROVIDERS: PCP Family Medicine; Visit Provider Registered Nurse | DX: R11.10 Vomiting, unspecified (principal); S06.0X0A Concussion without loss of consciousness, initial encounter; W50.0XXA Accidental hit or strike by another person, initial encounter; R53.83 Other fatigue | CPT/HCPCS: 99213 ==

== ENCOUNTER → 2024-03-07 10:37 | Outpatient (BNVA) | payer OTHER, SELFPAY | PROVIDERS: PCP Family Medicine; Visit Provider Registered Nurse | DX: S06.0X0D Concussion without loss of consciousness, subsequent encounter (principal); W50.0XXD Accidental hit or strike by another person, subsequent encounter; H53.71 Glare sensitivity | CPT/HCPCS: 99213 ==

== ENCOUNTER → 2024-03-18 07:40 | Outpatient (BNVA) | payer OTHER, SELFPAY | PROVIDERS: PCP Family Medicine; Visit Provider Registered Nurse | DX: S06.0X0D Concussion without loss of consciousness, subsequent encounter (principal); W50.0XXD Accidental hit or strike by another person, subsequent encounter; Z02.79 Encounter for issue of other medical certificate | CPT/HCPCS: 99213 ==

== ENCOUNTER 2024-04-30 07:59 | Emergency (ER) | payer OTHER, SELFPAY ==
--- NOTE | ~2024-04-30 | XR_ITS ---
EXAMINATION: XR HIP, RIGHT CLINICAL INFORMATION: pain, s/p fall COMPARISON: None available. TECHNIQUE: Two views of the right hip. AP pelvis. FINDINGS: No acute cortical disruption or malalignment. No lytic or blastic lesions. Bony pelvis is intact. T-shaped contraceptive device overlaps the mid to lower sacrum. XR/XR hip RT w PEL1V IMPRESSION: No acute fracture or dislocation, right hip. Electronically signed by: Vincent Kennedy MD 04/30/2024 08:40 AM [facility] SCHNEID[facility]
[2024-04-30 08:05] VITALS: BP 136/82; PULSE 80; O2SAT 98
[2024-04-30 08:11] VITALS: BP 116/83; PULSE 74; RESP 16; TEMP 36.1; O2SAT 98; BMI 49.6
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
[2024-04-30 09:09] VITALS: BP 116/83; PULSE 74; RESP 16; TEMP 36.1; O2SAT 98
--- OUTSIDE RECORDS SUMMARY | 2024-04-30 10:07 | XMS_ITS | Continuity of Care Document ---
Author Organization [facility] Address [address] [facility] [address] [place], [place] Phone [phone] Care Team Providers Care Member Service Representative Name Role Phone Natasha Vega MD Care [...] Indications Order ing Provider Date Metformin HCL [id number] Tablets ER 24HR take 3 tablets by mouth every day 270tabs Giselle Trammell M.D. 01/11/2024 Wegovy0.25mg/0.5ML Solution Auto-Inject inject 0.25mg subcutaneously once a week 2ml Z68.41 Giselle Trammell M.D. 01/02/2024 Zyrtec Rjkijjy04qn Tablets tab by mouth every day Unknown Quetiapine Kjnaywdf00yd Tablets 1@hs Unknown Doxazosin Pgeblkgl1lx Tablets Take 1-2 Tablets By Mouth Every Night AT Bedtime Unknown Vit D3 25mcg x1/wk Unknown 00 Fluticasone Niyqjjurbj85kmm/Ac t Suspension [place] 2 Sprays By Nasal Route Daily Unknown Diclofenac Sodium1% Gel Natasha Vega MD Duloxetine ILZ75pr Caps DR Part Take 1 Capsule By Mouth Daily In The Morning With Food Unknown Dlutmqhkicag9le Tablets Take 1 Tablet By Mouth Once A Day (With 5 MG Tablet) Unknown Duloxetine FLC95mz Caps DR Part Take 1 Capsule By Mouth Every Afternoon With Food. Total Daily Dose Of 90MG Unknown Pxlhewuwpz412hk Capsules Take 2 Capsules By Mouth 3 Times A Day. Natasha Vega MD Srjivvxshycu1zt Tablets Take 1 Tablet By Mouth Once A Day With 2MG. Total Daily Dose Of 7MG Unknown History Medications Doxazosin Qlhuhryn9tu Tablets Take 1 Tablet By Mouth Every Day AT Night Unknown - 04/03/[address] Unknown - 01/02/2024 Asmmtrhghq3se Tablets Unknown - 01/02/2024 Quetiapine Lqaotadi58yo Tablets 1@hs Unknown 000 - 04/03/[address] Take 1 Capsule By Mouth Every Day Unknown - 01/02/2024 Tetsgwzgcw63ee Tablets Unknown - 01/02/2024 Morphine Fbbjgqs41va Tablets Take 1 Tab By Mouth Every 6 Hours as Needed For Pain Natasha Vega MD - 01/02/2024 Guaifenesin-Xmwszkn752 -10mg/5ML Solution Take 5 Milliliters By Mouth 3 Times A Day as Needed For Cough Unknown - 01/02/2024
== END 2024-04-30 09:09 | disposition home or self-care (01) ==
LOC: HO.ED 09:09
PROVIDERS: Emergency Provider Emergency Medicine; PCP Family Medicine
DX: S70.01XA Contusion of right hip, initial encounter (principal); W00.0XXA Fall on same level due to ice and snow, initial encounter; M25.551 Pain in right hip; Y93.89 Activity, other specified; Y92.488 Other paved roadways as the place of occurrence of the external cause; Y99.9 Unspecified external cause status
CPT/HCPCS: 73502; 99282; 99283

== ENCOUNTER → 2024-04-30 08:20 | Outpatient (BNV) | payer OTHER, SELFPAY | PROVIDERS: Emergency Provider Emergency Medicine; Visit Provider Radiology Diagnostic Radiology | DX: M25.551 Pain in right hip (principal) | CPT/HCPCS: 73502 ==

== ENCOUNTER → 2024-10-29 13:49 | Outpatient (BNVA) | payer OTHER, SELFPAY | PROVIDERS: PCP Family Medicine; Visit Provider Physician Assistant | DX: S50.872A Other superficial bite of left forearm, initial encounter (principal); W50.3XXA Accidental bite by another person, initial encounter; Z23 Encounter for immunization | CPT/HCPCS: 84450; 84460; 86706; 86803; 87389; 90715; 99203 ==

== ENCOUNTER → 2024-10-31 08:19 | Outpatient (BNVA) | payer OTHER, SELFPAY | PROVIDERS: PCP Family Medicine; Visit Provider Emergency Medicine | DX: S50.872A Other superficial bite of left forearm, initial encounter (principal); S50.12XA Contusion of left forearm, initial encounter; W50.3XXA Accidental bite by another person, initial encounter; Z02.79 Encounter for issue of other medical certificate | CPT/HCPCS: 99213 ==

== ENCOUNTER → 2024-11-05 14:02 | Outpatient (BNVA) | payer OTHER, SELFPAY | PROVIDERS: PCP Family Medicine; Visit Provider Emergency Medicine | DX: S50.12XD Contusion of left forearm, subsequent encounter (principal); S50.872D Other superficial bite of left forearm, subsequent encounter; W50.3XXD Accidental bite by another person, subsequent encounter; Z02.79 Encounter for issue of other medical certificate | CPT/HCPCS: 99213 ==

== ENCOUNTER → 2024-11-17 13:15 | Outpatient (BNVA) | payer OTHER, SELFPAY | PROVIDERS: PCP Family Medicine; Visit Provider Emergency Medicine | DX: S46.811A Strain of other muscles, fascia and tendons at shoulder and upper arm level, right arm, initial encounter (principal); Y04.2XXA Assault by strike against or bumped into by another person, initial encounter; Z02.79 Encounter for issue of other medical certificate | CPT/HCPCS: 99202 ==

== ENCOUNTER 2024-11-21 12:21 | Emergency (ER) | payer OTHER, SELFPAY ==
--- NOTE | ~2024-11-21 | CT_ITS ---
EXAMINATION: CT HEAD WITHOUT IV CONTRAST HISTORY: head injury. TECHNIQUE: Unenhanced helical CT of the head was performed per standard departmental protocol. Coronal and sagittal reformats of the head were also evaluated. One or more of the following techniques was used for dose reduction: Automated exposure control, adjustment of the mA and/or kV according to patient size, use of iterative reconstruction technique. DLP: 606 mGy-cm COMPARISON: Comparison is made with the prior examination dated 02/20/2024. FINDINGS: BRAIN: The brain parenchyma is unremarkable. There is normal scanlon/white differentiation. The ventricular system is normal in size and configuration. There is no mass effect or midline shift. No intra- or extra-axial fluid collections are identified. SINUSES: The visualized paranasal sinuses are clear. The mastoid air cells and middle ear cavities are well pneumatized. ORBITS: The visualized orbits are unremarkable. BONES/SOFT TISSUES: The extracranial soft tissues are unremarkable. The calvarium is intact. No suspicious lytic or sclerotic lesions. CT/CT head/brain wo IV con IMPRESSION: No acute intracranial abnormality. Electronically signed by: Babar Kirkland MD 11/21/2024 02:08 PM EDT
[2024-11-21 12:34] VITALS: BP 133/70; PULSE 96; RESP 18; TEMP 36.3; O2SAT 94; BMI 46.1
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
--- OUTSIDE RECORDS SUMMARY | 2024-11-21 12:56 | XMS_ITS | Clinical Summary ---
Author Organization [facility] Address [address] [facility] [address] [place] [phone] Phone Care Team Providers Care [employer] Maintainer Name Role Phone Natasha Vega MD Primary Care Provider Allergies Active Allergy Reactions Criticality Noted Date Comments Catnip Herb Rash Low 08/08/2022 Should avoid mint products. Oils from these plants cause rash Mint 03/19/2024 Omeprazole 03/19/2024 wt gain Oxycodone Hallucinations High 11/29/2018 Medications cetirizine (ZYRTEC) 10 MG tablet Take 10 mg by mouth daily. Active DULoxetine (CYMBALTA) 60 MG capsule Take by mouth daily before breakfast. 0 Active QUEtiapine (SEROQUEL) 50 MG tablet Take 25 mg by mouth nightly at bedtime. at bedtime. 1 Active DULoxetine (CYMBALTA) 30 MG capsule Take 30 mg by mouth daily with lunch. Active doxazosin (CARDURA) 2 MG tablet Take 1 mg by mouth nightly at bedtime. 2 Active levonorgestrel (MIRENA UTRN) by Intrauterine route. 2 Active cholecalciferol , vitamin D3, (VITAMIN D3 ORAL) Take by mouth. Activ e ARIPiprazole (ABILIFY) 2 MG tablet Take 2 mg by mouth daily. 3 Active ARIPiprazole (ABILIFY) 5 MG tablet Take 5 mg by mouth daily. 3 Active metFORMIN (GLUCOPHAGE-XR) 500 MG 24 hr tablet Take by mouth daily with breakfast. 4 Active phentermine 15 MG capsule Take 15 mg by mouth daily. Active fluticasone propionate (FLONASE) 50 mcg/actuation nasal spray 1 spray by Nasal route daily. 11.1 mL 2 5 Active gabapentin (NEURONTIN) 100 MG capsuleIndicati ons:Fibromyalgi a Take 2-3 capsules (200-300 mg total) by mouth 3 (three) times a day. 270 capsule 4 5 Active Active Problems Problem Noted Date Diagnosed Date Routine medical exam 08/19/2024 Assessment & Plan (08/19/2024 4:58 PM EDT): 49 y.o. female here for complete physical exam. Increase gabapentin from 200 mg TID standing to an additional 100 mg PRN with each dose for flares. Watch for sedation. Other medical comorbidities stable and/or managed by specialists as noted in the HPI. USPSTF A&B recommendations reviewed with pt. BP: WNL BMI: Body mass index is 48.43 kg/m . and f/b endo with eight loss medications Pap smears for people age 21-65 with a cervix: due in Feb, done today for convenience, remote h/o abnormal ~20 years ago STI testing for teens and adults at risk, and at least one lifetime HIV, hep B& C test: Done previously and normal/negative PrEP for persons at high risk of HIV: N/A plans in the next year: No plans for . Prevention: IUD due for replacement in 2029 Depression and anxiety screens: Negative IPV screen in women of reproductive age (or others PRN): Negative Smoking cessation counseling: N/A Alcohol use counseling: N/A LTBI screening in people at increased risk: N/A BrCa screening in women/AFAB people at risk: 7-Question Family History Screening Tool negative Vaccinations: up to date Last dental visit: up to date Lipid screening to consider statin for primary prevention for adults 40-75, or at younger ages with risk factors: low risk 2023, repeat 4-6 years This SmartLink has been updated to reference the ASCVD 2013 equation and not the 2018 equations. The 10-year ASCVD risk score (Lety GAITAN, et al., 2019) is: 0.6% Values used to calculate the score: Age: 49 years Sex: Female Is Non- : No Diabetic: No Tobacco smoker: No Systolic Blood Pressure: 124 mmHg Is BP treated: Yes HDL Cholesterol: 73 mg/dL Total Cholesterol: 172 mg/dL Glucose/diabetes screening for people 35 - 70 with BMI >25: prediabetic, continue to monitor HEMOGLOBIN A1C Date Value Ref Range Status 05/05/2024 5.9 (H) 4.3 - 5.8 % Final Breast cancer risk reducing medication in people with breasts 35 and older at risk: N/A Breast cancer screening with biennial mammography for people with breasts 40 and older: done earlier this year Colonoscopy for adults 45-75: Not due until 2030 Orders: Pap Test Morbid obesity 08/19/2024 Assessment & Plan (08/19/2024 4:58 PM EDT): Abnormal diffusion capacity determined by pulmonary function test 05/16/2023 Overview (05/16/2023): Possible vocal cord dysfunction and DLCO 59% predicted. Assessment & Plan (05/16/2023 3:47 PM EDT): Abnormal PFTs with flow-volume loop inspiratory limitation and reduced diffusion capacity. Suspect the former is a reflection of her irritable larynx syndrome and the latter may be falsely low due to body habitus. Will recommend rechecking PFT in 3 to 4 months and if diffusion capacity remains reduced, suggest further workup including echo and possible chest CT. Lumbar spondylosis 10/20/2021 Prediabetes 04/14/2021 Overview (04/14/2021): A1c 5.9 Assessment & Plan (08/19/2024 4:58 PM EDT): Fibromyalgia 12/17/2020 Assessment & Plan (11/13/2024 1:39 PM EDT): Advised Juan that she is obviously working very hard to control her fibromyalgia symptoms and following all the usual best practices for doing so. She works through the symptoms whenever she can. I don't think anyone can expect more from her and she has made tremendous strides in her treatment and management. I do not really have anything new to add. I did suggest that she would benefit from intermittent FMLA/pFMLA for job protection/payment, especially if her work is going to give her a hard time about needing time off for her chronic, incurable condition. I explained what this is and what her rights are. She is welcome to gather those papers from and send them to me to fill out. Assessment & Plan (08/19/2024 4:58 PM EDT): Orders: gabapentin (NEURONTIN) 100 MG capsule; Take 2-3 capsules (200-300 mg total) by mouth 3 (three) times a day. Assessment & Plan (12/17/2020 3:49 PM EDT): I explained that pregabalin sounds like a totally reasonable plan to me but many insurance plans require a trial of gabapentin first. It is not FDA approved for this purpose, but it does work well for many people and is cheaper. Juan is willing to give this a try. We discussed risks of sedation and suicidality. I explained that the range of effective dosing is best and we will start with a small amount and can titrate up slowly as tolerated and as needed. I would also hope that once her pain is under better control she will be able to exercise again, partly because this is good for so many organ systems and also has it helps control fibromyalgia pain. I recommend that she may increase her exercise routine slowly as this is less likely to backfire. JOSE MIGUEL (obstructive sleep apnea) 07/16/2020 Vitamin D deficiency 03/18/2020 Daytime sleepiness 03/17/2020 Assessment & Plan (04/26/2020 9:51 AM EST): MSLT to be scheduled soon. I think her chronic sleep deprivation and/or depression likely account very well for her current memory problems. As she is in process of getting her sleep disorder worked up so it can be treated, and is in process of finding a new psychiatrist, I recommend she continue pursuing these concerns and f/u with me if memory concerns do not resolve once these are successfully treated. Other insomnia 03/17/2020 Gastric bypass status for obesity 07/01/2019 Assessment & Plan (08/19/2024 4:58 PM EDT): Assessment & Plan (07/01/2019 4:05 PM EDT): Advised pt she actually needs B12 supplementation all the time, not just when she's tired, and she should check her MVI label; if there isn't any B12 she should take it separately. Recent labs look OK and I will check a vit D level when I see her next. Recurrent major depressive disorder, in full rem ission Assessment & Plan (08/19/2024 4:58 PM EDT): Assessment & Plan (07/01/2019 4:04 PM EDT): Discussed with patient That as long as she is stable I am happy to fill her meds for her so she can stay with the therapist she likes and trusts. Given the severity of her symptoms last year, if these need to be modified in the future I may end up sending her to psychiatry at that point. Discussed importance of maintaining daily routines and getting adequate exercise during this pandemic for both sleep and mental health. Anxiety disorder Overview (07/01/2019): hospitalized 2019 for panic attacks with auditory hallucinations Assessment & Plan (08/19/2024 4:58 PM EDT): Resolved Problems Problem Noted Date Diagnosed Date Resolved Date Abdominal pain, epigastric 08/15/2023 0 08/19/2024 Glenoid fracture of shoulder, left, sequela 07/04/2023 08/19/2024 Overview (08/15/2023): Comminuted, displaced fx anterior-inferior L glenoid s/p trip and fall Abnormal physical evaluation 08/10/2022 08/19/2024 Assessment & Plan (08/15/2023 4:03 PM EDT): 48 y.o. female here for complete physical exam. Referred to GI for concern of recurrent peptic ulcer disease. Suggested use of topical diclofenac for her shoulder pain as this is less irritating to the stomach and an oral NSAID and she is already on a PPI for gastric protection. Appreciate shoulder fracture/rotator cuff management by orthopedics and physiatry and I will ask for their reassurance about an overnight stay should surgery be necessary. Other comorbidities stable and/or managed by specialists as noted in the HPI. USPSTF A&B recommendations reviewed with pt. BP: Mildly elevated albeit in pain, continue to monitor BMI: Body mass index is 49.6 kg/m . and has actually lost weight since her last visit despite being unable to exercise, encourage regular physical activity when able Pap smears for people age 21-65 with a cervix: Not due until 2024 STI testing for teens and adults at risk, and at least one lifetime HIV and hep C test: Done previously and normal/negative PrEP for persons at high risk of HIV: N/A plans in the next year: No plans for . Prevention: IUD Depression and anxiety screens: Negative, and treatment elsewhere IPV screen in women of reproductive age (or others PRN): Negative Smoking cessation counseling: N/A Alcohol use counseling: N/A LTBI screening in people at increased risk: N/A BrCa screening in women/AFAB people at risk: 7-Question Family History Screening Tool negative Vaccinations: up to date Last dental visit: up to date Lipid screening to consider statin for primary prevention for adults 40-75, or at younger ages with risk factors: WNL 2021, repeat 4-6 years This SmartLink has been updated to reference the ASCVD 2013 equation and not the 2018 equations. The 10-year ASCVD risk score (Lety DK, et al., 2019) is: 0.5% Values used to calculate the score: Age: 48 years Sex: Female Is Non- : No Diabetic: No Tobacco smoker: No Systolic Blood Pressure: 130 mmHg Is BP treated: No HDL Cholesterol: 70 mg/dL Total Cholesterol: 169 mg/dL Glucose/diabetes screening for people 35 - 70 with BMI >25: Ordered, previously prediabetic HEMOGLOBIN A1C Date Value Ref Range Status 08/08/2022 6.1 (H) 4.3 - 5.8 % Final Breast cancer risk reducing medication in people with breasts 35 and older at risk: N/A Aspirin for primary prevention for adults 40-59 with risk >10%, but no older: N/A Breast cancer screening with biennial mammography for people with breasts 50 and older, and can consider for 40-49: scheduled Colonoscopy for adults 45-75, and can consider at older ages: Not due until 2030 Assessment & Plan (08/10/2022 8:23 PM EDT): 47 y.o. female here for complete physical exam. Juan has worked really hard to stabilize her back pain and move forward with her education and independent employment despite significant mental health challenges and of course I am happy to support this with transportation accommodations. She will send me that form. USPSTF A&B recommendations reviewed with pt. BP: WNL BMI: Body mass index is 50.7 kg/m . and is currently in [facility] and exercising 5/week Pap smears for people age 21-65 with a cervix: Not due until 2024 STI testing for teens and adults at risk, and at least one lifetime HIV and hep C test: Done previously and normal/negative PrEP for persons at high risk of HIV: N/A plans in the next year: No plans for . Prevention: IUD Depression and anxiety screens: Negative IPV screen in women of reproductive age (or others PRN): Negative Smoking cessation counseling: N/A Alcohol use counseling: N/A LTBI screening in people at increased risk: N/A BrCa screening in women/AFAB people at risk: 7-Question Family History Screening Tool negative Vaccinations: up to date Last dental visit: up to date Lipid screening to consider statin for primary prevention for adults 40-75, or at younger ages with risk factors: WNL 2021, repeat @ 5 years This SmartLink has been updated to reference the ASCVD 2013 equation and not the 2018 equations. The 10-year ASCVD risk score (Lety GAITAN, et al., 2019) is: 0.4% Values used to calculate the score: Age: 47 years Sex: Female Is Non- : No Diabetic: No Tobacco smoker: No Systolic Blood Pressure: 118 mmHg Is BP treated: No HDL Cholesterol: 70 mg/dL Total Cholesterol: 169 mg/dL Glucose/diabetes screening for people 35 - 70 with BMI >25: will chec, previously prediabetic HEMOGLOBIN A1C Date Value Ref Range Status 04/12/2021 5.9 (H) 4.3 - 5.8 % Final Breast cancer risk reducing medication in people with breasts 35 and older at risk: N/A Aspirin for primary prevention for adults 40-59 with risk >10%, but no older: N/A Breast cancer screening with biennial mammography for people with breasts 50 and older, and can consider for 40-49: scheduled Colonoscopy for adults 45-75, and can consider at older ages: Not due until 2030 Acute bacterial sinusitis 01/06/2022 Assessment & Plan (01/06/2022 9:03 AM EDT): Duration of symptoms and examination consistent with acute bacterial sinusitis. Will treat with Augmentin. Discussed supportive care- increase fluids, steamy showers, Osvaldo's, honey for cough if over age of 1 year. ER with acute shortness of breath or chest pain Chronic cough 12/23/2021 08/15/2023 Assessment & Plan (05/16/2023 3:44 PM EDT): Approximately 7 months of ongoing cough. Remains productive. Initially started with upper respiratory infection with purulent sputum. The acute infectious symptoms resolved and was treated with azithromycin, residual cough however persist despite gradual improvement. Her current symptoms are most suggestive of possible postnasal drip with concurrent irritable larynx syndrome. She raises the question of possible environmental trigger as she improved well on winter break. If her cough fails to resolve we will need to investigate that further. PLAN: Continue Zyrtec daily Start Flonase 2 sprays each nostril once daily. If no improvement over the next 2 to 4 weeks, recommend trial of laryngeal lubricant, REFLUX GOURMET. Can use gum product 4 times daily If still no improvement, consider further testing for allergic triggers and possible treatment of irritable larynx with Lyrica. Assessment & Plan (01/12/2023 9:19 AM EST): Patient presents with a two week history of paroxysmal cough with post-tussive vomiting, along with fever, chills, and sleep disturbance due to nighttime coughing. Presentation is suggestive of bordetella pertussis, and although she received her Tdap in 2019, we discussed that the vaccine is only partially effective. She has had multiple negative COVID tests. Swab sent for pertussis for prognostic purposes. Empiric treatment initiated per CDC guidelines; discussed that the main purpose of antibiotics is preventing transmission and that pertussis cough often lasts for a very long time due to postinfectious inflammation. Cheratussin prescribed to assist with sleep. Patient reports her has already been sick and recovered so there is no need for household prophylaxis. Assessment & Plan (01/06/2022 9:02 AM EDT): Likely secondary to post-nasal drip Assessment & Plan (12/23/2021 9:47 AM EDT): Cough likely viral in origin. However given productive nature and intermittent brown phelgm will obtain a CXR. Will treat for bronchitis with prednisone burst, albuterol MDI, and tessalon Perles for comfort. Discussed supportive care- increase fluids, steamy showers, Osvaldo's, honey for cough if over age of 1 year. ER with acute shortness of breath or chest pain Disorder of sacrum 10/20/2021 4 COVID-19 07/18/2021 08/10/2022 Snoring 03/17/2020 07/16/2020 Abnormal physical evaluation 02/24/2020 08/10/2022 Assessment & Plan (04/14/2021 9:24 AM EST): 45 y.o. female here for complete physical exam. Referred to physiatry for knee pain impairing ability to walk without relief from physical therapy. H/o vit D deficiency, due for recheck USPSTF A&B recommendations reviewed with pt. BP: WNL BMI: Body mass index is 52.06 kg/m . and wants to increase exercise knees per mitting Pap smears for people age 21-65 with a cervix: Not due until 2024 STI testing for teens and adults at risk, and at least one lifetime HIV and hep C test: don etodaadri PrEP for persons at high risk of HIV: N/A plans in the next year: No plans for . Prevention: Sarah, due for replacement next month. Recommend Mirena/Kyleena/Liletta unless her uterus is too small as this will last longer for her and she is happy to be amenorrheic. She gets good migraine relief from this, too. Depression screen: in treatment with outside provider. IPV screen in women of reproductive age (or others PRN): Negative Smoking cessation counseling: N/A Alcohol use counseling: N/A LTBI screening in people at increased risk: N/A BrCa screening in women/AFAB people at risk: 7-Question Family History Screening Tool negative Vaccinations: up to date Last dental visit: overdue, will schedule Lipid screening to consider statin for primary prevention for adults 40-75, or at younger ages with risk factors: will check Breast cancer risk reducing medication in people with breasts 35 and older at risk: N/A Glucose/diabetes screening for people 35 - 70 with BMI >25: will do Breast cancer screening with biennial mammography for people with breasts 50 and older, and can consider for 40-49: will schedule Assessment & Plan (02/24/2020 12:02 PM EST): 44 y.o. female here for complete physical exam. History of knee pain is concerning for possible torn menisci with both locking and buckling BL, but exam is quite normal. We will check knee XR and if normal I would recommend a course of physical therapy before moving on to advanced imaging. Most likely explanation of diarrhea is IBS. We discussed what this is. CBC was normal, will also check ESR/CRP to r/o inflammatory process and check for celiac disease. If positive, will need scope. Nothing in her history to suggest infectious process. Dumping syndrome is possible but less likely given remote nature of bypass surgery. If tests are negative, I suggest she start by treating her diarrhea with an OTC antidiarrheal such as imodium. I explained there are multiple other options if this is insufficient but given the many medication adjustments of late I'd like to proceed cautiously to spare her any additional pharmaological complications if possible. She has no risk factors for ischemic heart disease except weight, and if her prior EKG shows the same ST/T wave changes then we will not pursue this further. We will request prior records today. Remainder of chronic dz questions deferred 2/2 time constraints. USPSTF A&B recommendations reviewed with pt. BP: WNL BMI: Body mass index is 50.15 kg/m . and Recommend increasing exercise as tolerated when we get her knee pain under control Pap smears for people age 21-65 with a cervix: done today, previously normal STI testing for teens and adults at risk: Done previously and normal/negative PrEP for persons at high risk of HIV: N/A plans in the next year: No plans for . Prevention: IUD Depression screen: in treatment, as yet unsuccessful because every time they try to change her medicine she has severe insomnia. I agree she should see a sleep specialist and possibly needs MSLT vs overnight sleep study or both, although it's also possible that her sleep problems are mood-related. I am not sure what triggers she should be looking for in regards to her sleep diary and she can discuss this with the specialist. IPV screen in women of reproductive age (or others PRN): Negative Smoking cessation counseling: N/A Alcohol use counseling: N/A LTBI screening in people at increased risk: N/A BrCa screening in women/AFAB people at risk: 7-Question Family History Screening Tool negative Vaccinations: TDaP today, presumably otherwise up to date Last dental visit: overdue, encouraged to schedule Lipid screening to consider statin for primary prevention for adults 40-75, or at younger ages with risk factors: Done previously and normal/negative Breast cancer risk reducing medication in women 35 and older at risk: N/A Breast cancer screening with biennial mammography for women 50 and older, and can consider for 40-49: Pt will schedule Glucose/diabetes screening for people 40 - 70 with BMI >25: Done previously and normal/negative LLQ pain 04/23/2019 07/01/2019 Assessment & Plan (04/23/2019 1:13 PM EST): 2.2 cm cyst would not be cause of this pain, I do not think this is filling winder in origin As there is some tenderness on exam today, will check u/s As n/v and diarrhea were present at onset, GI source is much more likely, there are no signs concerning for filling winder infection, or torsion, etc Encounters Date Type Department Care Team Description 11/13/2024 11:40 AM EDT Telemedicine [facility] [address] [place] [address] Natasha Vega MD Fibromyalgia (Primary Dx) 08/27/2024 10:15 AM EDT Office Visit [facility] [address] [place] [address] Jessica Dorado MD Breast pain (Primary Dx) 08/27/2024 9:02 AM EDT - 08/27/2024 11:59 PM EDT Hospital Encounter [facility] [address] [place] [address] Giselle Trammell MD Discharge Disposition: Home or Self Care 08/27/2024 Transcribe Orders [facility] [address] [place] [address] Giselle Trammell MD Body mass index 40.0-44.9, adult (Primary Dx) from Last 3 Months Immunizations Immunization Administration Dates Next Due COVID-19 (Pre-12/25) Pfizer Vaccine, mRNA, PF 06/14/2020,05/24/2020 Hep A-Hep B 07/05/2023,01/05/2023,12/05/2022 Influenza Quadrivalent Prese rvative Free IM 11/29/2022,03/01/2022,12/17/2020,2019,10/29/2018,10/22/2017,10/06/2016,0 10/19/2015 Influenza Trivalent MDCK Pre servative Free IM 10/23/2023 MMR 11/09/2020 Tdap 02/23/2020 Family History Medical History Relation Comments HIV Father Kidney disease Father Multiple sclerosis Maternal Aunt Coronary artery disease Maternal Grandmother smo ker Migraines Mother Diabetes Paternal Uncle 1 Diabetes Paternal Uncle 2 Liver cancer Unspecified GGM Lung cancer Unspecified GGM Breast cancer Neg Hx Colon cancer Neg Hx Ovarian cancer Neg Hx Relation Status Comments Father Maternal Aunt Maternal Grandmother Mother Alive Paternal Uncle 1 Paternal Uncle 2 Unspecified Social History Tobacco Use Types Packs/Day Years Used Date Smoking Tobacco: Never Smokeless Tobacco: Never Tobacco Cessation:Counseling Given: Not Answered Alcohol Use Standard Drinks/Week Comments Not Currently 0 (1 standard drink = 0.6 oz pur e alcohol) Child or Family Care Answer Date Record ed Do you have problems with on e of the following making it difficult for you to work, study, or receive health care? No 08/18/2024 Education Answer Date Recorded Are you interested in help w ith more adult education (for example, completing high school, GED, job training, learning the [place] language, technical skills, or developing parenting skills)? No 08/18/2024 Are you concerned about learning? Not on file 08/18/2024 No 08/18/2024 Yes 08/18/2024 Food Answer Date Recorded Within the past 6 months we worried whether our food would run out before we got money to buy more. Never True 08/18/2024 Within the past 6 months the food we bought just didn't last and we didn't have enough money to get more. Never True Residential Stability Answer Date Recor ded What is your housing situation today? I have valerie sing 08/18/2024 How many times have you move d in the past 12 months? Zero (I did not move) 08/18/2024 Paying for Meds Answer Date Recorded Do you have trouble paying for medicines? No 08/18/2024 Paying Utility Bills Answer Date Record ed Do you have trouble paying your heating or elect ricity bill? No 08/18/2024 Transportation Answer Date Recorded Has the lack of transportati on kept you from medical appointments or from getting medications? No 08/18/2024 Unemployment Answer Date Recorded Are you currently unemployed or working on a part-time or temporary basis, and looking for work? No 08/08/2022 Digital Access Answer Date Recorded No 08/18/2024 Yes 08/18/2024 Do you have reliable internet access at home? Ye s 08/18/2024 Do you have a device (e.g., phone, tablet, computer) with a working camera? Yes 08/18/2024 Intimate Partner Violence Answer Date R ecorded Are you denied basic needs s uch as food, clothing, or medical care? No 08/18/2024 In the past 12 months have y ou been in a relationship with a person who hurts, threatens, or tries to control you? No 08/18/2024 Are you denied basic needs s uch as food, clothing, or medical care? No 08/18/2024 In the past 12 months have y ou been in a relationship with a person who hurts, threatens, or tries to control you? No 08/18/2024 Comments No Sex and Gender Information Value Date Recorded Sex Assigned at Female 11/29/2018 4:36 PM EDT Legal Sex Female 4:18 PM EDT Gender Identity Female 11/29/2018 4:36 PM EDT Sexual Orientation Straight 11/29/2018 4: 36 PM EDT Last Filed Vital Signs Vital Sign Reading Time Taken Comments Blood Pressure 108/74 08/27/2024 9:58 AM EDT Pulse 89 08/27/2024 9:58 AM EDT Temperature 36.2 C (97.2 F) 08/27/2024 9:58 AM EDT Respiratory Rate 20 08/27/2024 9:58 AM EDT Oxygen Saturation 97% 08/27/2024 9:58 AM EDT Inhaled Oxygen Concentration - - Weight 124 kg (273 lb 6.4 oz) 08/18/2024 3:06 PM EDT Height 160 cm (5' 3 ) 08/18/2024 3:06 PM EDT Body Mass Index 48.43 08/18/2024 3:06 PM EDT Plan of Treatment Health Maintenance Due Date Last Done Comments COLOGUARD 2022 FIT TEST 2022 FOBT 2022 SIGMOIDOSCOPY 2022 VIRTUAL COLONOSCOPY 2022 INFLUENZA VACCINE (#1) 2024 , 11/29/2022, 03/01/2022, Additional history exists DEPRESSION SCREENING 08/18/2025 08/18/2024, 04/12/19 22 CREATININE LEVEL 08/27/2025 08/27/2024, , 01/17/2024, Additional history exists MAMMOGRAM 06/12/2026 06/12/2024, 08/04, 08/18/2022, Additional history exists SCREENING FOR DIABETES 08/28/2027 08/27/2024, 2024 IUD 05/19/2029 05/19/2021 PAP SMEAR 08/18/2029 08/18/2024, 02/23/2020 LIPID PANEL 08/27/2029 08/27/2024, 08/03, 04/12/2021 COLONOSCOPY 08/10/2030 08/10/2020 COLORECTAL CANCER SCREENING 08/10/2030 Adult Td,Tdap Booster 10/29/2034 10/29/2024, 020 HEPATITIS C SCREENING Completed 04/12/2021 HIV ONE-TIME SCREENING (18-65 YEARS) Completed 04/12/2021 HEPATITIS A VACCINES Aged Out 07/05/2023, 01/05/2023, 12/05/2022 No longer eligible based on patient's age to complete this topic COVID-19 VACCINE Completed 11/24/2023, 04/2022, 03/01/2022, Additional history exists SMOKING STATUS SCREENING (Once After 26 Yrs) Completed 11/13/2024 HIB VACCINES Aged Out No longer eligi ble based on patient's age to complete this topic MENINGOCOCCAL VACCINES (ACWY) Aged Out No longer eligible based on patient's age to complete this topic MENINGOCOCCAL VACCINES (B) Aged Out N o longer eligible based on patient's age to complete this topic PNEUMOCOCCAL VACCINES (0-49 years) Aged Out No longer eligible based on patient's age to complete this topic Medical Devices Implanted Type Area Commercial Loan Coordinator Device Identifier Shelf Expiration Date Model / Serial / Lot Iud Implanted: (Quantity not on file) Intrauterine Device Procedures Procedure Name Priority Date/Time Associated Diagnosis Comments HEMOGLOBIN A1C Routine 08/27/2024 9:42 AM EDT Body mass index 40.0-44.9, adult CBC Routine 08/27/2024 9:42 AM EDT Body mass index 40.0-44.9, adult LIPID PANEL Routine 08/27/2024 9:42 AM EDT Body mass index 40.0-44.9, adult RENAL PANEL Routine 08/27/2024 9:42 AM EDT Body mass index 40.0-44.9, adult VITAMIN B12 Routine 08/27/2024 9:42 AM EDT Body mass index 40.0-44.9, adult FOLATE Routine 08/27/2024 9:42 AM EDT Body mass index 40.0-44.9, adult PAP TEST Routine 08/18/2024 12:00 AM EDT BI MAMMOGRAM DIAGNOSTIC WITH TOMOSYNTHESIS WITH CAD (BILATERAL) Urgent/patient waiting 06/12/2024 2:07 PM EDT Mastodynia HEPATITIS C ANTIBODY, QUALITATIVE Routine 04/12/2021 12:48 PM EST Abnormal physical evaluation ENDOSCOPY, COLON 08/10/2020 1:35 PM EDT from Last 3 Months or Most Recently Relevant to Health Maintenance Results * (ABNORMAL) Renal panel (08/27/2024 9:42 AM EDT) SODIUM 132(L) 133 - 146 mmol/L [facility] POTASSIUM 3.8 3.3 - 5.1 mmol/L [facility] CHLORIDE 96 96 - 108 mmol/L [facility] CO2 25 21 - 35 mmol/L [facility] GLUCOSE 117(H) 70 - 99 mg/dL [facility] BUN 8 6 - 19 mg/dL [facility] CREATININE 0.70 0.5 - 1.5 mg/dL [facility] CALCIUM 9.7 8.4 - 10.3 mg/dL [facility] PHOSPHORUS 2.7 2.7 - 4.5 mg/dL [facility] ALBUMIN 3.9 3.9 - 4.8 g/dL [facility] EGFR 107 >59 mL/min/1.7 3m2 [facility] Comment:Estimated glomerular filtration rate calculated using the CKD-EPI refit equation. ANION GAP 15 10 - 20 mmol/L [facility] Blood 08/27/2024 9:42 AM EDT 08/27/2024 9:45 AM EDT us Giselle Trammell MD LAB BLOOD ORDERABLES Final R esult [facility] [address] [place] [address] * CBC (08/27/2024 9:42 AM EDT) WBC 6.53 4.00 - 11.00 K/uL [facility] RBC 4.62 4.00 - 5.20 M/uL [facility] HGB 14.0 12.0 - 16.0 g/dL [facility] HCT 43.1 36.0 - 46.0 % [facility] PLT 296 150 - 450 K/uL [facility] MCV 93.3 80.0 - 100.0 fL [facility] MCH 30.3 27.0 - 31.0 pg [facility] MCHC 32.5 32.0 - 36.0 g/dL [facility] RDW 13.0 11.5 - 14.5 % [facility] MPV 9.4 8.4 - 12.0 fL [facility] NRBC 0.00 0.00 /100 WBCs [facility] ABSOLUTE NRBC 0.00 0.00 K/uL [facility] Blood 08/27/2024 9:42 AM EDT 08/27/2024 9:45 AM EDT us Giselle Trammell MD LAB BLOOD ORDERABLES Final R esult [address] [address] * (ABNORMAL) Hemoglobin A1c (08/27/2024 9:42 AM EDT) HEMOGLOBIN A1C 5.9(H) 4.3 - 5.8 % [facility] Blood 08/27/2024 9:42 AM EDT 08/27/2024 9:46 AM EDT us Giselle Trammell MD LAB BLOOD ORDERABLES Final R esult [address] [address] * Folate (08/27/2024 9:42 AM EDT) FOLIC ACID 4.2 4.2 - 19.9 ng/mL [facility] Blood 08/27/2024 9:42 AM EDT 08/27/2024 9:45 AM EDT Result Roxana Trammell MD LAB BLOOD ORDERABLES Final R esult [address] [address] * Vitamin B12 (08/27/2024 9:42 AM EDT) VITAMIN B12 316 232 - 1,245 pg/mL [facility] Blood 08/27/2024 9:42 AM EDT 08/27/2024 9:45 AM EDT us Giselle Trammell MD LAB BLOOD ORDERABLES Final R esult Performing Organization Address City/[facility] Co de Phone Number [address] [address] * (ABNORMAL) Lipid panel (08/27/2024 9:42 AM EDT) HDL 70 mg/dL [facility] Comment: Interpretation <40 mg/dL: Low HDL cholesterol (major risk factor for CHD) Greater than or equal to 60 mg/dL: High HDL cholesterol ( negative risk factor for CHD) HDL - cholesterol is affected by a number of factors, e.g. smoking, excerise, hormones, sex and age. CHOLESTEROL 167 0 - 240 mg/dL [facility] TRIGLYCERIDES 78 30 - 160 mg/dL [facility] LDL 81 50 - 129 mg/dL [facility] Comment: LDL levels in terms of risk for coronary heart disease: <100 mg/dL: Optimal 100-129 mg/dL: Near or above optimal 130-159 mg/dL: Borderline high 160-189 mg/dL: High >190 mg/dL: Very High CARDIAC RISK RATIO 2.4(L) 3.3 - 4.4 C [facility] Blood 08/27/2024 9:42 AM EDT 08/27/2024 9:45 AM EDT Result Roxana Trammell MD LAB BLOOD ORDERABLES Final R esult [address] [address] * Pap Test (08/18/2024 12:00 AM EDT) 08/18/2024 08/19/2024 9:3 4 AM EDT Narrative SEE NARRATIVE - 08/25/2024 1:15 PM EDT [address] [address] Poultry Offal Worker: Axel Quiñonez MD [employer] Cytology Report FINAL DIAGNOSIS A. PAP SMEAR (THIN PREP) CE: SPECIMEN ADEQUACY: Satisfactory for evaluation; transformation zone absent/insufficient. INTERPRETATION: NEGATIVE FOR INTRAEPITHELIAL LESION OR MALIGNANCY. This specimen was analyzed by the automated ThinPrep Imaging System ([email or web address] and manually rescreened by a automatic mounter and/or pathologist. Electronically Signed Out By: SHIKHA Gallagher(ASCP) The Pap test is a screening test primarily for squamous cancers and precursors and has associated false-negative and false-positive results. New technologies such as liquid-based preparations may decrease but will not eliminate all false-negative results. Regular sampling and follow-up of unexplained clinical signs and symptoms are recommended to minimize false negative results. PROCEDURES/ADDENDA HPV Testing (Requested) Ordered Date: 08/19/2024 A. PAP SMEAR (THIN PREP) CE: High-risk HPV Panel w/ extended genotyping NEG HPV 16-NEG HPV 18-NEG HPV 45-NEG HPV 33/58-NEG HPV 31-NEG HPV 56/59/66-NEG HPV 51-NEG HPV 52-NEG HPV 35/39/68-NEG Performed by real-time polymerase chain reaction (PCR) at [facility], [address] [place] [address] using the FDA-approved BD Onclarity HPV Assay with extended genotyping. Uses of the assay in scenarios other than those approved by the FDA should be considered off-label use. The accuracy and precision of this test for all other off-label specimen sources has been verified in the Cytopathology Laboratory of the [facility] and has not been cleared or approved by the U.S. Food and Drug Administration. Clinical correlation is advised. The assay assesses the E6/E7 DNA target and utilizes human beta globin as an internal control. Cytology and HPV testing are screening assays and should not be used as the sole means of detecting cancer. False-positives and false-negatives can occur. CLINICAL HISTORY Date of Last Menstrual Period: Not Provided Menstrual History: Unknown Contraceptive History: IUD Other Clinical Conditions: Screening Pap SPECIMEN SOURCE A: PAP SMEAR (THIN PREP) CE Patient Name: JUAN ULLOA : 1975 (Age: 49) Sex: F Institution[facility] Location: [facility] Date of Collection: 08/18/2024 Date of Reported: 08/25/2024 13:16 Results to: Natasha Vega MD Natasha Vega MD CYTOLOGY ORDERABLES Final Re sult SEE NARRATIVE * BI MAMMOGRAM DIAGNOSTIC WITH TOMOSYNTHESIS WITH CAD (BILATERAL) (06/12/2024 2:07 PM EDT) Anatomical Region Laterality Modality Breast Left, Breast Right, Breast Bilateral Bila teral Mammography 06/12/2024 3:37 PM EDT Impressions 06/12/2024 3:44 PM EDT No imaging findings to account for the clinical symptoms of bilateral breast pain. Management of breast pain should be based on the level of clinical concern. Negative imaging findings should not preclude biopsy of any clinically suspicious finding. BI-RADS 1 NEGATIVE Results and recommendations were communicated to the patient at time of examination. Narrative 06/12/2024 3:44 PM EDT BI MAMMOGRAM DIAGNOSTIC WITH TOMOSYNTHESIS WITH CAD (BILATERAL), BI US BREAST LIMITED (BILATERAL) Additional patient information: Generalized/regional bilateral superior breast pain for 2 months. COMPARISON: Comparison is made with relevant prior imaging. Breast composition: There are scattered areas of fibroglandular density. FINDINGS: Right Mammogram: There is no focal or suspicious mammographic correlate for the area of clinical concern. No abnormal masses, suspicious calcifications, or other significant findings are identified mammographically in the right breast. Right Ultrasound: Targeted ultrasound was performed in the area of clinical concern as indicated by the patient. No sonographic abnormality is seen. Left Mammogram: There is no focal or suspicious mammographic correlate for the area of clinical concern. No abnormal masses, suspicious calcifications, or other significant findings are identified mammographically in the left breast. There has been no interval change. Left Ultrasound: Targeted ultrasound was performed in the area of clinical concern as indicated by the patient. No sonographic abnormality is seen. us Natasha Vega MD IMG MG EXAMS Final Result * Hepatitis C antibody, qualitative (04/12/2021 12:48 PM EST) HCV NON-REACTIV E NON-REACTI VE [facility] Blood 04/12/2021 12:4 8 PM EST 04/12/2021 12:53 PM EST us Natasha Vega MD LAB BLOOD ORDERABLES Final R esult [address] [address] * ENDOSCOPY, COLON (08/10/2020 1:35 PM EDT) Narrative Transcriptions Cole Jeronimo MD - 08/10/2020 1:35 PM EDT Patient Name: Juan Moreauor Attending MD:: COLE JERONIMO MD, Procedure Date: 08/10/2020 1:35 PM Date of : 1975 Age: 45 Admit Type: Outpatient Gender: Female Room: [facility] Referring MD: Natasha Vega Exam Type: Colonoscopy Indications: Chronic diarrhea Medications: Monitored Anesthesia Care Procedure: Informed consent was obtained from the patient after discussion of the indications, limitations, alternatives, benefits, and risks of the procedure. Risks specifically discussed include but are not limited to medication reactions, missed lesions, bleeding, perforation, or the need for emergentsurgery. Throughout the procedure, the patient's bloodpressure, pulse, end-tidal CO2, and oxygen saturations were monitored continuously. The Olympus adult variable colonoscope [id number] #4was introduced through the anus and advanced to the terminal ileum. The colonoscopy was performedwithout difficulty. The patient tolerated the procedurewell. The quality of the bowel preparation was excellent.The quality of the bowel preparation was evaluated using the BBPS (Bailey Bowel Preparation Scale) withscores of: Right Colon = 3, Transverse Colon = 3 and Left Colon = 3 (entire mucosa seen well with no residual staining, small fragments of stool or opaqueliquid). The total BBPS score equals 9. Complications: No immediate complications. Estimated blood loss: Minimal. Findings: The perianal and digital rectal examinations were normal. The terminal ileum appeared normal. The colon (entire examined portion) appeared normal. Biopsies for histology were taken with a coldforceps from the right colon and left colon for evaluationof microscopic colitis. Impression: - The examined portion of the ileum was normal. - The entire examined colon is normal. Biopsied. Recommendation: - Discharge patient to home. - Await pathology results. - Repeat colonoscopy in 10 years for screeningpurposes. COLE JERONIMO MD, 08/10/2020 2:00:19 PM This report has been signed electronically. Number of Addenda: 0 Note Initiated On: 08/10/2020 1:35 PM Procedure Code(s): --- Professional --- 99397, Colonoscopy, flexible; with biopsy, single or multiple --- Technical --- 56813, Colonoscopy, flexible; with biopsy, single or multiple Diagnosis Code(s): --- Professional --- K52.9, Noninfective gastroenteritis and colitis, unspecified --- Technical --- K52.9, Noninfective gastroenteritis and colitis, unspecified CPT copyright 2018 [employer]. All rights reserved. The codes documented in this report are preliminary and upon sales program coordinator reviewmay be revised to meet current compliance requirements. Procedure Date: 08/10/2020 1:35:17 PM [address] [place] [address] Natasha Vega MD GI PROCEDURE ORDERABLES Edit ed Result - Final from Last 3 Months or Most Recently Relevant to Health Maintenance Insurance O [facility] [address] [address] [address] HMO [facility] HMO [place] [address] [address] HMO HMO Care Teams Telegraph Plant Maintainer Relationship Specialty Start Date End Date Natasha Vega MD [address] [facility] [address] [place] [address] [email or web address] PCP - General Family Medicine 06/25/19 Additional Source Comments The information contained in this document represents components of the legal health record. It is not the complete legal health record.[facility]
--- OUTSIDE RECORDS SUMMARY | 2024-11-21 12:56 | XMS_ITS | Encounter Summary ---
Author Organization [facility] Address [address] [place] [address] Phone Care Team Providers Care Jewel Cupping Machine Operator Name Role Phone Natasha Vega MD Primary Care Provider Geraldine Hahn MD Unavailable [phone] Encounter Details Date Type Department Care Team (Late st Contact Info) Description 08/08/2021 Procedure Pass [facility], [facility] [address] [place] [address] Social History Tobacco Use Types Packs/Day Years Used Date Smoking Tobacco: Never Smokeless Tobacco: Never Alcohol Use Standard Drinks/Week Comments Not Currently 0 (1 standard drink = 0.6 oz pur e alcohol) Child or Family Care Answer Date Record ed Do you have problems with on e of the following making it difficult for you to work, study, or receive health care? No 04/12/2021 Education Answer Date Recorded Are you interested in help w ith more adult education (for example, completing high school, GED, job training, learning the [place] language, technical skills, or developing parenting skills)? No 04/12/2021 Food Answer Date Recorded Within the past 6 months we worried whether our food would run out before we got money to buy more. Never True 04/12/2021 Within the past 6 months the food we bought just didn't last and we didn't have enough money to get more. Never True Residential Stability Answer Date Recor ded What is your housing situation today? I have valerie sing 04/12/2021 How many times have you move d in the past 12 months? Zero (I did not move) 04/12/2021 Paying for Meds Answer Date Recorded Do you have trouble paying for medicines? No 04/12/2021 Paying Utility Bills Answer Date Record ed Do you have trouble paying your heating or elect ricity bill? No 04/12/2021 Transportation Answer Date Recorded Has the lack of transportati on kept you from medical appointments or from getting medications? No 04/12/2021 Unemployment Answer Date Recorded Are you currently unemployed or working on a part-time or temporary basis, and looking for work? No 04/12/2021 Comments No Sex and Gender Information Value Date Recorded Sex Assigned at Female 11/29/2018 4:36 PM EDT Legal Sex Female 4:18 PM EDT Gender Identity Female 11/29/2018 4:36 PM EDT Sexual Orientation Straight 11/29/2018 4: 36 PM EDT documented as of this encounter Plan of Treatment Not on file documented as of this encounter Visit Diagnoses Not on filedocumented in this encounter Additional Health Concerns Infection Onset Date Last Indicated Resolved Time CoV-Risk 02/22/2024 02/22/2024 03/04/2024 1:22 AM EST Assessment Noted Time PHQ-9 Depression Total Score: 18 022 10:21 AM EST PHQ-2 Depression Total Score: 4 04/12/19 22 10:21 AM EST documented as of this encounter Care Teams Jewel Cupping Machine Operator Relationship Specialty Start Date End Date Natasha Vega MD [address] [facility] [address] [place] [address] PCP - General Family Medicine 06/25/19 Geraldine Hahn MD [address] [facility] [place] [address] Insurance Assigned Provider 08/12/22 1 documented as of this encounter Additional Source Comments The information contained in this document represents components of the legal health record. It is not the complete legal health record.[facility]
--- OUTSIDE RECORDS SUMMARY | 2024-11-21 12:56 | XMS_ITS | Encounter Summary ---
Author Organization [facility] Address [address] [place] [address] Phone Care Team Providers Care Graphic Arts Technician Name Role Phone Natasha Vega MD Primary Care Provider Geraldine Hahn MD Unavailable [phone] Encounter Details Date Type Department Care Team (Late st Contact Info) Description 08/01/2022 Procedure Pass [facility], [facility] [address] [place] [address] Social History Tobacco Use Types Packs/Day Years [...] high school, GED, job training, learning the [place] language, technical skills, or developing parenting skills)? [...] basis, and looking for work? No 04/12/2021 Digital Access Answer Date Recorded No 07/29/2022 No 07/29/2022 No 07/29/2022 Reliable internet access at home? Not on file 07/29/2022 Device with a working camera? Not on file Comments No Sex and Gender Information Value [...] 10:21 AM EST PHQ-2 Depression Total Score: 2 08/09/19 23 8:18 AM EDT documented as of this encounter Care Teams Graphic Arts Technician Relationship Specialty Start Date End Date Natasha Vega MD [address] [facility] [address] [place] [address] PCP - General Family Medicine 06/25/19 Geraldine Hahn MD [address] [facility] [place] [address] Insurance Assigned Provider 08/12/22 1 documented as of this encounter Additional Source Comments The information contained in this document represents components of the legal health record. It is not the complete legal health record.[facility]
--- OUTSIDE RECORDS SUMMARY | 2024-11-21 12:56 | XMS_ITS | Encounter Summary ---
Author Organization [facility] Address [address] [facility] [address] [place] [address] Phone Care Team Providers Care Permaculture Designer Name Role Phone Natasha Vega MD Primary Care Provider Geraldine Hahn MD Unavailable [phone] Encounter Details Date Type Department Care Team (Late st Contact Info) Description 08/10/2020 Procedure Pass [facility] Admitting Dept Virtual Department [address] [place] [address] Social History Tobacco Use Types Packs/Day Years Used Date Smoking Tobacco: Never Smokeless Tobacco: Never Alcohol Use Standard Drinks/Week Comments Not Currently 0 (1 standard drink = 0.6 oz pur e alcohol) Comments No Sex and Gender Information Value [...] Infection Onset Date Last Indicated Resolved Time CoV-Presumed 07/15/2021 07/15/2021 08/05/2021 1:23 AM EDT CoV-Risk 02/22/2024 02/22/2024 03/04/2024 1:22 AM EST documented as of this encounter Care Teams Permaculture Designer Relationship Specialty Start Date End Date Natasha Vega MD [address] [facility] [address] [place] [address] PCP - General Family Medicine 06/25/19 Geraldine Hahn MD [address] [facility], [address] [place] [address] Insurance Assigned Provider 08/12/22 1 documented as of this encounter Additional Source Comments The information contained in this document represents components of the legal health record. It is not the complete legal health record.[facility]
--- OUTSIDE RECORDS SUMMARY | 2024-11-21 12:56 | XMS_ITS | Encounter Summary ---
Author Organization [facility] Address [address] [place] [address] Phone Care Team Providers Care Criminal Justice Program Director Name Role Phone Natasha Vega MD Primary Care Provider Geraldine Hahn MD Unavailable [phone] Reason for Visit * Reason Onset Date Comments Cough 12/22/2021 Emesis 12/22/2021 Encounter Details Date Type Department Care Team (Late st Contact Info) Description 12/22/2021 Nurse Triage [facility] Primary Care [address] [place] [address] Natasha Vega MD [address] [facility] [address] [place] [address] [email or web address] Cough; Emesis Social History Tobacco Use Types Packs/Day Years [...] high school, GED, job training, learning the Syrian language, technical skills, or developing parenting skills)? [...] your housing situation today? I have valerie mercado 04/12/2021 How many times have you move [...] PM EDT documented as of this encounter Progress Notes * Perla Garsia RN - 12/22/2021 2:37 PM EDT Cough started last week, has now started vomiting. Vomiting b/c of coughing per report. PT concerned - would like to be seen AYAN. Scheduled for appt with Brandi Jain NP this afternoon. Nurse Triage Encounter Note Reason for Triage Mee Ulloa contacted office for Cough,Emesis Call Disposition Schedule Visit Within 2 Business Days Patient/caregiver understands and will follow disposition: Yes Patient/caregiver understands and will follow care advice: Yes, Plans To Follow Advice Disposition Comments: Protocols used: Ixwwt-Ilqtg-Eu Vkrjzcjj-Ufeub-Sp Care Advice Given Care Advice Patient/Caregiver understands and will follow care advice?: Yes, plans to follow advice EXPECTED COURSE: * The expected course depends on what is causing the cough. * Viral bronchitis (chest cold) causes a cough that lasts 1 to 3 weeks. Sometimes you may cough up lots of phlegm (sputum, mucus). The mucus can normally be white, scanlon, yellow, or green. REASSURANCE AND EDUCATION - COMMON COLD SYMPTOMS : * It sounds like an uncomplicated cold that we can treat at home. * Colds are very common and may make you feel uncomfortable. * Colds are caused by viruses, and no medicine or 'shot' will cure an uncomplicated cold. * Colds are usually not serious. * Here is some care advice that should help. Patient will call back with additional questions or if symptoms change or worsen Perla Garsia RN Reason for Disposition and Assessment Reason for Disposition ??? Patient wants to be seen ??? Patient wants to be seen Answer Assessment - Initial Assessment Questions 1. ONSET: When did the cough begin? One week ago 2. SEVERITY: How bad is the cough today? Persistent, vomiting today due to coughing 3. SPUTUM: Describe the color of your sputum (none, dry cough; clear, white, yellow, green) Clear 4. HEMOPTYSIS: Are you coughing up any blood? If so ask: How much? (flecks, streaks, tablespoons, etc.) No 5. DIFFICULTY BREATHING: Are you having difficulty breathing? If Yes, ask: How bad is it? (e.g., mild, moderate, severe) - MILD: No SOB at rest, mild SOB with walking, speaks normally in sentences, can lay down, no retractions, pulse < 100. - MODERATE: SOB at rest, SOB with minimal exertion and prefers to sit, cannot lie down flat, speaksin phrases, mild retractions, audible wheezing, pulse 100-120. - SEVERE: Very SOB at rest, speaks in single words, struggling to breathe, sitting hunched forward,retractions, pulse > 120 No 6. FEVER: Do you have a fever? If Yes, ask: What is your temperature, how was it measured, and when did it start? No 7. CARDIAC HISTORY: Do you have any history of heart disease? (e.g., heart attack, congestive heart failure) no 8. LUNG HISTORY: Do you have any history of lung disease? (e.g., pulmonary embolus, asthma, emphysema) Yes - marisela 9. PE RISK FACTORS: Do you have a history of blood clots? (or: recent major surgery, recent prolonged travel, bedridden) No 10. OTHER SYMPTOMS: Do you have any other symptoms? (e.g., runny nose, wheezing, chest pain) Congestion 11. : Is there any chance you are ? When was your last menstrual period? 12. TRAVEL: Have you traveled out of the country in the last month? (e.g., travel history, exposures) Protocols used: [id number], [id number] * Homer Awan - 12/22/2021 9:05 AM EDT Pt LVM, has been sick a week, has a cough with vomiting, Please contact and advise. documented in this encounter Plan of Treatment Not on [...] documented as of this encounter Care Teams Criminal Justice Program Director Relationship Specialty Start Date End Date Natasha Vega MD [address] [facility] [address] [place] [address] PCP - General Family Medicine 06/25/19 Geraldine Hahn MD [address] [facility] [place] [address] Insurance Assigned Provider 08/12/22 1 documented as of this encounter Additional Source Comments The information contained in this document represents components of the legal health record. It is not the complete legal health record.[facility]
--- OUTSIDE RECORDS SUMMARY | 2024-11-21 12:56 | XMS_ITS | Encounter Summary ---
Author Organization [facility] Address [address] [place] [address] Phone Care Team Providers Care Engine Installer Name Role Phone Natasha Vega MD Primary Care Provider [phone] Geraldine Hahn MD Unavailable [phone] Encounter Details Date Type Department Care Team (Latest Contact Info) Description 08/01/2022 Transcribe Orders Virtual Department [address] [place] [address] Natasha Vega MD [address] [facility] [address] [place] [address] [email or web address] Breast screening (Primary Dx) Social History Tobacco Use Types Packs/Day Years [...] high school, GED, job training, learning the Kazakh language, technical skills, or developing parenting skills)? [...] is your housing situation today? I have valeire mercado 04/12/2021 How many times have you [...] on file documented as of this encounter Results * BI MAMMOGRAM SCREENING WITH TOMOSYNTHESIS WITH CAD (BILATERAL) (08/18/2022 1:14 PM EDT) Anatomical Region Laterality Modality Breast Left, Breast Right, Breast Bilateral Bila teral Mammography 08/18/2022 3:24 PM EDT Impressions 08/18/2022 3:31 PM EDT No findings suspicious for malignancy are identified. In the absence of a worrisome palpable abnormality, annual screening mammography is recommended. BI-RADS CATEGORY: 1 - Negative. DENSITY: There are scattered fibroglandular densities. Narrative 08/18/2022 3:31 PM EDT AVAILABLE COMPARISON: 05/10/2021 and 04/02/2020 Bilateral 3-D tomosynthesis with 2-D reconstructions in the CC and MLO projection. Computer-aided detection system was utilized. No new mass, asymmetry, architectural distortion or suspicious calcifications have become apparent in either breast. Procedure Note Stefan Lindsey MD - 08/18/2022 AVAILABLE COMPARISON: 05/10/2021 and 04/02/2020 Bilateral 3-D tomosynthesis with 2-D reconstructions in the CC and MLOprojection. Computer-aided detection system was utilized. No new mass, asymmetry, architectural distortion or suspiciouscalcifications have become apparent in either breast. IMPRESSION: No findings suspicious for malignancy are identified. In the absence of aworrisome palpable abnormality, annual screening mammography isrecommended. BI-RADS CATEGORY: 1 - Negative. DENSITY: There are scattered fibroglandular densities. Natasha Vega MD IMG MG EXAMS Final Result documented in this encounter Visit Diagnoses Diagnosis Breast screening- Primary Breast screening, unspecified Breast screening Breast screening, unspecified documented in this encounter Additional Health Concerns Infection Onset Date Last Indicated Resolved Time CoV-Risk 02/22/2024 02/22/2024 03/04/2024 1:22 AM EST Assessment Noted Time PHQ-9 Depression Total Score: 18 022 10:21 AM EST PHQ-2 Depression Total Score: 4 04/12/19 22 10:21 AM EST documented as of this encounter Care Teams Engine Installer Relationship Specialty Start Date End Date Natasha Vega MD [address] [place] [address] [address] [place] [address] PCP - General Family Medicine 06/25/19 Geraldine Hahn MD [address] [place] [address], [address] [place] [address] Insurance Assigned Provider 08/12/22 1 documented as of this encounter Additional Source Comments The information contained in this document represents components of the legal health record. It is not the complete legal health record.[facility]
--- OUTSIDE RECORDS SUMMARY | 2024-11-21 12:56 | XMS_ITS | Encounter Summary ---
Author Organization [facility] Address [email or web address] [place] [address] Phone Care Team Providers Care Assistant Therapy Aide Name Role Phone Natasha Vega MD Primary Care Provider + [phone] Encounter Details Date Type Department Care Team (Late st Contact Info) Description 09/14/2023 Procedure Pass [facility], Ct Scan - [address] [address] Social History Tobacco Use Types Packs/Day Years Used Date Smoking Tobacco: Never Smokeless Tobacco: Never Alcohol Use Standard Drinks/Week Comments Not Currently 0 (1 standard drink = 0.6 oz pur e alcohol) Child or Family Care Answer Date Record ed Do you have problems with on e of the following making it difficult for you to work, study, or receive health care? No 08/13/2023 Education Answer Date Recorded Are you interested in help w ith more adult education (for example, completing high school, GED, job training, learning the Slovak language, technical skills, or developing parenting skills)? No 08/13/2023 Are you concerned about learning? Not on file 08/13/2023 No 08/13/2023 Yes 08/13/2023 Food Answer Date Recorded Within the past 6 months we worried whether our food would run out before we got money to buy more. Never True 08/13/2023 Within the past 6 months the food we bought just didn't last and we didn't have enough money to get more. Never True Residential Stability Answer Date Recor ded What is your housing situation today? I have valerie sing 08/13/2023 How many times have you move d in the past 12 months? Zero (I did not move) 08/13/2023 Paying for Meds Answer Date Recorded Do you have trouble paying for medicines? No 08/13/2023 Paying Utility Bills Answer Date Record ed Do you have trouble paying your heating or elect ricity bill? No 08/13/2023 Transportation Answer Date Recorded Has the lack of transportati on kept you from medical appointments or from getting medications? No 08/13/2023 Unemployment Answer Date Recorded Are you currently unemployed or working on a part-time or temporary basis, and looking for work? No 08/08/2022 Digital Access Answer Date Recorded No 08/13/2023 Yes 08/13/2023 Do you have reliable internet access at home? Ye s 08/13/2023 Do you have a device (e.g., phone, tablet, computer) with a working camera? Yes 08/13/2023 Comments No Sex and Gender Information Value [...] AM EST PHQ-2 Depression Total Score: 2 08/13/19 24 2:13 PM EDT documented as of this encounter Care Teams Assistant Therapy Aide Relationship Specialty Start Date End Date Natasha Vega MD [address] [place] [address] PCP - General Family Medicine 06/25/19 documented as of this encounter Additional Source Comments The information contained in this document represents components of the legal health record. It is not the complete legal health record.[facility]
--- OUTSIDE RECORDS SUMMARY | 2024-11-21 12:56 | XMS_ITS | Encounter Summary ---
Author Organization [facility] Address [address] [place] [address] Phone Care Team Providers Care Restaurant Maintenance Technician Name Role Phone Natasha Vega MD Primary Care Provider + [phone] Encounter Details Date Type Department Care Team (Late st Contact Info) Description 02/22/2024 Procedure Pass [facility], Ct Scan - [address] [address] Social History Tobacco Use Types Packs/Day Years [...] computer) with a working camera? Yes 08/13/2023 Intimate Partner Violence Answer Date R ecorded Are you denied basic needs s uch as food, clothing, or medical care? No 02/22/2024 In the past 12 months have y ou been in a relationship with a person who hurts, threatens, or tries to control you? No 02/22/2024 Are you denied basic needs s uch as food, clothing, or medical care? No 02/22/2024 In the past 12 months have y ou been in a relationship with a person who hurts, threatens, or tries to control you? No 02/22/2024 Comments No Sex and Gender Information Value Date Recorded Sex Assigned at Female 11/29/2018 4:36 PM EDT Legal Sex Female 4:18 PM EDT Gender Identity Female 11/29/2018 4:36 PM EDT Sexual Orientation Straight 11/29/2018 4: 36 PM EDT documented as of this encounter Functional Status * Calculated C-SSRS Risk Score (Lifetime/Recent) Answer Date of Assessment Author No Risk Indicated 02/22/2024 2:52 PM Melanie Chiu RN * [place] Suicide Severity Rating Scale (Screener/Recent Self-Report) Question Answer Date of Assessment Author 1. Wish to be (Past 1 Month) No 024 2:52 PM Melanie Chiu RN 2. Non-Specific Active Suici coral Thoughts (Past 1 Month) No 02/22/2024 2:52 PM EST Melanie Landrum RN 6. Suicidal Behavior (Lifetime) No 4 2:52 PM EST Melanie Landrum RN documented as of this encounter Plan of [...] documented as of this encounter Care Teams Restaurant Maintenance Technician Relationship Specialty Start Date End Date Natasha Vega MD [address] [address] [email or web address] PCP - General Family Medicine 06/25/19 documented as of this encounter Additional Source Comments The information contained in this document represents components of the legal health record. It is not the complete legal health record.[facility]
--- OUTSIDE RECORDS SUMMARY | 2024-11-21 12:56 | XMS_ITS | Encounter Summary ---
Author Organization [facility] Address [address] [facility] [address] [place] [address] Phone Care Team Providers Care Kitchen Stewardess Name Role Phone Natasha Vega MD Primary Care Provider + [phone] Reason for Referral * MRI/CAT Scan - Closed Specialty Diagnoses / Procedures Referred By Dick ambriz Referred To Contact Radiology Diagnoses Epigastric pain Procedures CT Abdomen/Pelvis CHG CT SCAN,ABDOMENT AND PELVIS,W CONTRAST Ying Lerma CNP Phone: tel: fax: [email or web address] Referral ID Status Reason Start Date Expiration Date Visits Re quested Visits Authorized [id number] Closed 09/14/2023 11/13/2023 1 1 Encounter Details Date Type Department Care Team (Latest Contact Info) Description 09/14/2023 Transcribe Orders Virtual Department [address] [place] [address] Ying Lerma CNP [address] [place] [address] [email or web address] Epigastric pain (Primary Dx) Social History Tobacco Use Types [...] high school, GED, job training, learning the Hungarian language, technical skills, or developing parenting skills)? [...] housing situation today? I have valerie mercado 08/13/2023 How many times have you move [...] documented as of this encounter Results * CT ABDOMEN/PELVIS WITH CONTRAST (10/03/2023 3:42 PM EDT) Anatomical Region Laterality Modality Abdomen, Pelvis Computed Tomogra phy 10/09/2023 9:31 AM EDT Impressions 10/09/2023 9:36 AM EDT 1. No acute abnormality. 2. Status post sleeve gastrectomy. Probable small hiatal hernia. 3. Unchanged small umbilical hernia contains fat. Narrative 10/09/2023 9:[address] ABDOMEN/PELVIS WITH CONTRAST INDICATION: Epigastric abdominal pain. TECHNIQUE: Multidetector-row CT of the abdomen and pelvis was performed after administration of intravenous contrast using tailored dose modulation techniques. Images were reconstructed in the axial, coronal, and sagittal planes. COMPARISON: CT from 07/05/2023. FINDINGS: Lower Chest: No consolidation or pleural effusions. Liver: No focal lesion. No hepatomegaly. Biliary: Cholecystectomy. Nondilated ducts. Spleen: Normal. Pancreas: No new abnormality. Fatty infiltration. Adrenal Glands: No nodule. Kidneys/Ureters: Normal. Bowel: Probable small hiatal hernia. Status post sleeve gastrectomy. Normal appearance of the small bowel, appendix, colon and rectum. Peritoneum/Retroperitoneum: No masses, pneumoperitoneum, or fluid. Lymph Nodes: Normal. Pelvic Organs/Bladder: Normal sized uterus with IUD in place. No adnexal lesion. Decompressed urinary bladder. Vessels: Normal. Bones/Soft Tissues: No acute abnormality. No suspicious lesion. Unchanged umbilical hernia contains fat with no signs of acute inflammation. Procedure Note Lauro Pretty MD - 10/09/2023 CT ABDOMEN/PELVIS WITH CONTRAST INDICATION: Epigastric abdominal pain. TECHNIQUE: Multidetector-row CT of the abdomen and pelvis was performedafter administration of intravenous contrast using tailored dosemodulation techniques. Images were reconstructed in the axial, coronal,and sagittal planes. COMPARISON: CT from 07/05/2023. FINDINGS: Lower Chest: No consolidation or pleural effusions. Liver: No focal lesion. No hepatomegaly. Biliary: Cholecystectomy. Nondilated ducts. Spleen: Normal. Pancreas: No new abnormality. Fatty infiltration. Adrenal Glands: No nodule. Kidneys/Ureters: Normal. Bowel: Probable small hiatal hernia. Status post sleeve gastrectomy.Normal appearance of the small bowel, appendix, colon and rectum. Peritoneum/Retroperitoneum: No masses, pneumoperitoneum, or fluid. Lymph Nodes: Normal. Pelvic Organs/Bladder: Normal sized uterus with IUD in place. No adnexallesion. Decompressed urinary bladder. Vessels: Normal. Bones/Soft Tissues: No acute abnormality. No suspicious lesion. Unchangedumbilical hernia contains fat with no signs of acute inflammation. IMPRESSION: 1. No acute abnormality. 2. Status post sleeve gastrectomy. Probable small hiatal hernia. 3. Unchanged small umbilical hernia contains fat. Ying Lerma CNP IMG CT ABD/PELVIS Final Re sult documented in this encounter Visit Diagnoses Diagnosis Epigastric pain- Primary Abdominal pain, epigastric Epigastric pain Abdominal pain, epigastric documented in this encounter Additional Health Concerns Infection Onset Date Last Indicated Resolved Time CoV-Risk 02/22/2024 02/22/2024 03/04/2024 1:22 AM EST Assessment Noted Time PHQ-9 Depression Total Score: 18 022 10:21 AM EST PHQ-2 Depression Total Score: 2 08/13/19 24 2:13 PM EDT documented as of this encounter Care Teams Kitchen Stewardess Relationship Specialty Start Date End Date Natasha Vega MD [address] [place] [address] [email or web address] PCP - General Family Medicine 06/25/19 documented as of this encounter Additional Source Comments The information contained in this document represents components of the legal health record. It is not the complete legal health record.[facility]
--- OUTSIDE RECORDS SUMMARY | 2024-11-21 12:56 | XMS_ITS | Encounter Summary ---
Author Organization [facility] Address [address] [place] [address] Phone Care Team Providers Care Oracle Business Intelligence Developer Name Role Phone Natasha Vega MD Primary Care Provider + [phone] Encounter Details Date Type Department Care Team ([facility] st Contact Info) Description 11/13/2023 Procedure Pass [facility] Admitting Dept Virtual Department [address] [place] [address] Social History Tobacco Use Types Packs/Day Years [...] high school, GED, job training, learning the Trinidadian language, technical skills, or developing parenting skills)? [...] as food, clothing, or medical care? No 11/13/2023 In the past 12 months have y ou been in a relationship with a person who hurts, threatens, or tries to control you? No 11/13/2023 Are you denied basic needs s uch as food, clothing, or medical care? No 11/13/2023 In the past 12 months have y ou been in a relationship with a person who hurts, threatens, or tries to control you? No 11/13/2023 Comments No Sex and Gender Information Value [...] documented as of this encounter Care Teams Oracle Business Intelligence Developer Relationship Specialty Start Date End Date Natasha Vega MD [address] [place] [address] [email or web address] PCP - General Family Medicine 06/25/19 documented as of this encounter Additional Source Comments The information contained in this document represents components of the legal health record. It is not the complete legal health record.[facility]
--- OUTSIDE RECORDS SUMMARY | 2024-11-21 12:57 | XMS_ITS | Encounter Summary ---
Author Organization [facility] Address [address] [place] [address] Phone Care Team Providers Care Pet Counselor Name Role Phone Natasha Vega MD Primary Care Provider [phone] Geraldine Hahn MD Unavailable [phone] Encounter Details Date Type Department Care Team (Late st Contact Info) Description 03/02/2020 Procedure Pass [facility] [place] [address] [place] [address] Social History Tobacco Use Types Packs/Day Years [...] Onset Date Last Indicated Resolved Time CoV-Risk 06/08/2020 06/09/2020 06/18/2020 1:24 AM EDT CoV-Presumed 07/15/2021 07/15/2021 08/05/2021 1:23 AM EDT CoV-Risk 02/22/2024 02/22/2024 03/04/2024 1:22 AM EST documented as of this encounter Care Teams Pet Counselor Relationship Specialty Start Date End Date Natasha Vega MD [address] [facility] [address] [place] [address] [email or web address] PCP - General Family Medicine 06/25/19 Geraldine Hahn MD [address] [facility] [place] [address] [email or web address] Insurance Assigned Provider 08/12/22 1 documented as of this encounter Additional Source Comments The information contained in this document represents components of the legal health record. It is not the complete legal health record.[facility]
--- OUTSIDE RECORDS SUMMARY | 2024-11-21 12:57 | XMS_ITS | Encounter Summary ---
Author Organization [facility] Address [address] [facility] [address] [place] [address] Phone Care Team Providers Care Hair Sample Matcher Name Role Phone Natasha Vega MD Primary Care Provider [phone] Geraldine Hahn MD Unavailable [phone] Encounter Details Date Type Department Care Team (Latest Contact Info) Description 04/14/2021 Transcribe Orders Virtual Department [address] [place] [address] Natasha Vega MD 15 [facility] [address] [place] [address] [email or web address] Breast screening (Primary Dx) Social History Tobacco [...] high school, GED, job training, learning the [place] language, technical skills, or developing parenting skills)? [...] MAMMOGRAM SCREENING WITH TOMOSYNTHESIS WITH CAD (BILATERAL) (05/10/2021 3:45 PM EST) Anatomical Region Laterality Modality Breast Left, Breast Right, Breast Bilateral Bila teral Mammography 05/10/2021 3:39 PM EST Impressions 05/10/2021 4:29 PM EST No mammographic evidence of malignancy. Recommend routine annual surveillance. BI-RADS CATEGORY: 1 - Negative. DENSITY: There are scattered fibroglandular densities. Narrative 05/10/2021 4:29 PM EST 45-year-old female with no current breast symptoms. Comparison made to previous on 04/02/2020. Interpretation made in conjunction with computer-aided detection and tomosynthesis. There are scattered areas of fibroglandular density. There are no suspicious masses, areas of architectural distortion, or suspicious clusters of microcalcifications. Procedure Note Selvin Malin MD - 05/10/2021 45-year-old female with no current breast symptoms. Comparison made toprevious on 04/02/2020. Interpretation made in conjunction withcomputer-aided detection and tomosynthesis. There are scattered areas of fibroglandular density. There are no suspicious masses, areas of architectural distortion, orsuspicious clusters of microcalcifications. IMPRESSION: No mammographic evidence of malignancy. Recommend routine annualsurveillance. BI-RADS CATEGORY: 1 - Negative. DENSITY: There [...] documented as of this encounter Care Teams Hair Sample Matcher Relationship Specialty Start Date End Date Natasha Vega MD 15 [facility] [address] [place] [address] PCP - General Family Medicine 06/25/19 Geraldine Hahn MD 22 [facility] [place] [address] Insurance Assigned Provider 08/12/22 1 documented as of this encounter Additional Source Comments The information contained in this document represents components of the legal health record. It is not the complete legal health record.[facility]
--- OUTSIDE RECORDS SUMMARY | 2024-11-21 12:57 | XMS_ITS | Encounter Summary ---
Author Organization [facility] Address [address] [facility] [address] [place] [address] Phone Care Team Providers Care Head Teller Name Role Phone Natasha Vega MD Primary Care Provider Geraldine Hahn MD Unavailable [phone] Encounter Details Date Type Department Care Team (Late st Contact Info) Description 03/02/2020 Ancillary Orders Virtual Department [address] [place] [address] Natasha Vega MD 15 [facility] [address] [place] [address] Breast screening Social History Tobacco Use Types Packs/Day Years [...] MAMMOGRAM SCREENING WITH TOMOSYNTHESIS WITH CAD (BILATERAL) (04/02/2020 3:04 PM EST) Anatomical Region Laterality Modality Breast Left, Breast Right, Breast Bilateral Bila teral Mammography 04/02/2020 6:36 PM EST Impressions 04/02/2020 6:39 PM EST BILATERAL BREASTS: Negative, no evidence of malignancy. Normal interval follow- up is recommended in 12 months. Bi-RADS: BI-RADS CATEGORY: 1 - Negative. DENSITY: There are scattered fibroglandular densities. Narrative 04/02/2020 6:39 PM EST STUDY: Bilateral screening mammography with tomosynthesis and CAD TECHNIQUE: Bilateral full-field digital screening mammography is obtained and read in conjunction with computer-aided detection. Tomosynthesis as well as 2-D C view imaging were obtained. COMPARISON: None. This is a baseline study. BREAST COMPOSITION: There are scattered areas of fibroglandular density BILATERAL BREASTS: No significant masses, suspicious calcifications or other abnormalities are seen. Procedure Note Errol Bailey MD - 04/02/2020 STUDY: Bilateral screening mammography with tomosynthesis and CAD TECHNIQUE: Bilateral full-field digital screening mammography is obtainedand read in conjunction with computer-aided detection. Tomosynthesis aswell as 2-D C view imaging were obtained. COMPARISON: None. This is a baseline study. BREAST COMPOSITION: There are scattered areas of fibroglandulardensity BILATERAL BREASTS: No significant masses, suspicious calcifications orother abnormalities are seen. IMPRESSION: BILATERAL BREASTS: Negative, no evidence of malignancy. Normal intervalfollow-up is recommended in 12 months. Bi-RADS: BI-RADS CATEGORY: 1 - Negative. DENSITY: There are scattered fibroglandular densities. Natasha Vgea MD IMG MG EXAMS Final Result documented in this encounter Visit Diagnoses Diagnosis Breast screening Breast screening, unspecified Breast screening Breast screening, unspecified documented in this encounter Additional Health Concerns Infection Onset Date Last Indicated Resolved Time CoV-Risk 06/08/2020 06/09/2020 06/18/2020 1:24 AM EDT CoV-Presumed 07/15/2021 07/15/2021 08/05/2021 1:23 AM EDT CoV-Risk 02/22/2024 02/22/2024 03/04/2024 1:22 AM EST documented as of this encounter Care Teams Head Teller Relationship Specialty Start Date End Date Natasha Vega MD 15 [facility] [address] [place] [address] PCP - General Family Medicine 06/25/19 Geraldine Hahn MD 22 [facility], [address] [place] [address] [email or web address] Insurance Assigned Provider 08/12/22 1 documented as of this encounter Additional Source Comments The information contained in this document represents components of the legal health record. It is not the complete legal health record.[facility]
--- OUTSIDE RECORDS SUMMARY | 2024-11-21 12:57 | XMS_ITS | Encounter Summary ---
Author Organization [facility] Address [address] [facility] [address] [place] [address] Phone Care Team Providers Care Sales Project Administrator Name Role Phone Natasha Vega MD Primary Care Provider [phone] Encounter Details Date Type Department Care Team (Late st Contact Info) Description 06/12/2024 Ancillary Orders [facility] [address] [facility] [address] [place] [address] Natasha Vega MD 15 [facility] [address] [place] [address] [email or web address] Mastodynia (Primary Dx) Social History Tobacco Use Types [...] high school, GED, job training, learning the Martiniquais language, technical skills, or developing parenting skills)? [...] as of this encounter Results * BI US BREAST LIMITED (BILATERAL) (06/12/2024 3:02 PM EDT) Anatomical Region Laterality Modality Breast Left, Breast Right, Breast Bilateral Bila teral Ultrasound 06/12/2024 3:37 PM EDT Impressions 06/12/2024 3:44 [...] the patient. No sonographic abnormality is seen. Natasha Vega MD [facility] [place] BREAST Final Result documented in this encounter Visit Diagnoses Diagnosis Mastodynia Mastodynia- Primary documented in this encounter Additional Health Concerns Assessment Noted Time PHQ-9 Depression Total Score: 18 022 10:21 AM EST PHQ-2 Depression Total Score: 2 08/13/19 24 2:13 PM EDT documented as of this encounter Care Teams Sales Project Administrator Relationship Specialty Start Date End Date Natasha Vega MD [address] [place], [place] [id number] PCP - General Family Medicine 06/25/19 documented as of this encounter Additional Source Comments The information contained in this document represents components of the legal health record. It is not the complete legal health record.[facility]
--- OUTSIDE RECORDS SUMMARY | 2024-11-21 12:57 | XMS_ITS | Encounter Summary ---
Author Organization [facility] Address [address] [place] [address] Phone Care Team Providers Care Turbine Attendant Name Role Phone Natasha Vega MD Primary Care Provider [phone] Geraldine Hahn MD Unavailable [phone] Encounter Details Date Type Department Care Team (Late st Contact Info) Description 04/14/2021 Procedure Pass [facility], [facility] [address] [place] [address] Social History Tobacco Use Types Packs/Day Years [...] high school, GED, job training, learning the Welsh language, technical skills, or developing parenting skills)? [...] documented as of this encounter Care Teams Turbine Attendant Relationship Specialty Start Date End Date Natasha Vega MD 15 [facility] [address] [place] [address] PCP - General Family Medicine 06/25/19 Geraldine Hahn MD 22 [facility] [place] [address] Insurance Assigned Provider 08/12/22 1 documented as of this encounter Additional Source Comments The information contained in this document represents components of the legal health record. It is not the complete legal health record.[facility]
--- OUTSIDE RECORDS SUMMARY | 2024-11-21 12:57 | XMS_ITS | Encounter Summary ---
Author Organization [facility] Address [address] [place] [address] Phone Care Team Providers Care Value Stream Manager Name Role Phone Natasha Vega MD Primary Care Provider Geraldine Hahn MD Unavailable [phone] Encounter Details Date Type Department Care Team (Late st Contact Info) Description 03/02/2020 Ancillary Orders [facility] [address] [facility] [address] [place] [address] Natasha Vega MD 15 [facility] [address] [place] [address] Social History Tobacco Use Types Packs/Day Years [...] documented as of this encounter Care Teams Value Stream Manager Relationship Specialty Start Date End Date Natasha Vega MD 15 [facility] [address] [place] [address] PCP - General Family Medicine 06/25/19 Geraldine Hahn MD 22 [facility], [address] [place] [address] [email or web address] Insurance Assigned Provider 08/12/22 1 documented as of this encounter Additional Source Comments The information contained in this document represents components of the legal health record. It is not the complete legal health record.[facility]
--- OUTSIDE RECORDS SUMMARY | 2024-11-21 12:57 | XMS_ITS | Continuity of Care Document ---
Author Organization [facility] Address [address] [facility] [address] [place], [place] Phone [phone] Care Team Providers Care Food And Drug Research Scientist Name Role Phone Natasha Vega MD Care Team Information Receive r GISELLE Arzola M.D. Care Team Information Rec eiver Unavailable Natasha Vega MD Primary Care Physician Unavai lable Problems Active Problems Provider Date Body mass index 40+ - severely obese Giselle Trammell M.D. Onset: 01/02/2024 Social History Type Date Description Comments Sex Female Sex Unknown Allergies and adverse reactions Active Allergies Criticality Reaction Severity Comments Date Oxycontin Unable to assess criticality 11/01/2023 Mint Unable to assess criticality 11/01/2023 Omeprazole Unable to assess criticality wt gain 01/02/2024 Medications Active Medications SIG Qnty Indications Order ing Provider Date Phentermine GVK97zt Capsules 1 capsule by mouth every day 30caps Z68.41 Giselle Trammell M.D. 09/08/2024 Metformin HCL HZ922hj Tablets ER 24HR take 3 tablets by mouth every day 270tabs Giselle Trammell M.D. 01/11/2024 Quetiapine Pwmnjoqb81qa Tablets 1@hs Unknown /0 000 Doxazosin Dlzltbqw1yo Tablets Take 1-2 Tablets By Mouth Every Night AT Bedtime Unknown Zyrtec Cbrcvji71kw Tablets tab by mouth every day Unknown Vit D3 25mcg x1/wk Unknown 00 Fluticasone Mnseervxge40qxg/Act Suspension [place] 2 Sprays By Nasal Route Daily Unknown Duloxetine ISD09km Caps DR Part Take 1 Capsule By Mouth Daily In The Morning With Food Unknown Zhimazlaryny0bd Tablets Take 1 Tablet By Mouth Once A Day (With 5 MG Tablet) Unknown Duloxetine GIR66pf Caps DR Part Take 1 Capsule By Mouth Every Afternoon With Food. Total Daily Dose Of 90MG Unknown Qtnpubqdgt286no Capsules Take 2 Capsules By Mouth 3 Times A Day. Natasha Vega MD Zaatmhkvdake4pr Tablets Take 1 Tablet By Mouth Once A Day With 2MG. Total Daily Dose Of 7MG Unknown Diclofenac Sodium1% Gel Natasha Vega MD History Medications Phentermine GEQ97vy Capsules 1 capsule by mouth every day 30caps Z68.Nancy Trammell M.D. 07/08/2024 - 09/08/2024 Lzntum3br/0.5ML Solution Auto-Inject inject 1 mg subcutanously once a week 2ml Z68Driss Trammell M.D. 06/27/2024 - 07/08/2024 Wegovy0.5mg/0.5ML Solution Auto-Inject take 0.5mg subcutanously once a week 2ml Sebastien68Driss Trammell M.D. 06/02/2024 - 06/27/2024 Wegovy0.25mg/0.5ML Solution Auto-Inject inject 0.25mg subcutaneously once a week 2ml Sebastien68Driss Trammell M.D. 01/02/2024 - 06/02/2024 Doxazosin Hwmvnzou9qz Tablets Take 1 Tablet By Mouth Every Day AT Night Unknown - 04/03/[address] Unknown - 01/02/2024 Hlqoljvbfb4fg Tablets Unknown - 01/02/2024 Quetiapine Uvezzkxr17xr Tablets 1@hs Unknown - 04/03/[address] Take 1 Capsule By Mouth Every Day Unknown - 01/02/2024 Bsrmgtgwhh24jh Tablets Unknown - 01/02/2024 Morphine Wzqkufy09gn Tablets Take 1 Tab By Mouth Every 6 Hours as Needed For Pain Natasha Vega MD - 01/02/2024 Guaifenesin-Codein g799-44sx/5ML Solution Take 5 Milliliters By Mouth 3 Times A Day as Needed For Cough Unknown - 01/02/2024
--- OUTSIDE RECORDS SUMMARY | 2024-11-21 12:57 | XMS_ITS | Encounter Summary ---
Author Organization [facility] Address [address] [place] [address] Phone Care Team Providers Care Adaptive Physical Education Specialist Name Role Phone Natasha Vega MD Primary Care Provider [phone] Encounter Details Date Type Department Care Team (Late st Contact Info) Description 07/05/2023 Procedure Pass [facility], [facility] - [address] [address] Social History Tobacco Use Types Packs/Day Years Used Date Smoking Tobacco: Never Smokeless Tobacco: Never Alcohol Use Standard Drinks/Week Comments Not Currently 0 (1 standard drink = 0.6 oz pur e alcohol) Child or Family Care Answer Date Record ed Do you have problems with on e of the following making it difficult for you to work, study, or receive health care? No 08/08/2022 Education Answer Date Recorded Are you interested in help w ith more adult education (for example, completing high school, GED, job training, learning the Montenegrin language, technical skills, or developing parenting skills)? No 08/08/2022 Are you concerned about learning? Not on file 08/08/2022 No 08/08/2022 Yes 08/08/2022 Food Answer Date Recorded Within the past 6 months we worried whether our food would run out before we got money to buy more. Never True 08/08/2022 Within the past 6 months the food we bought just didn't last and we didn't have enough money to get more. Never True Residential Stability Answer Date Recor ded What is your housing situation today? I have valerie sing 08/08/2022 How many times have you move d in the past 12 months? Zero (I did not move) 08/08/2022 Paying for Meds Answer Date Recorded Do you have trouble paying for medicines? No 08/08/2022 Paying Utility Bills Answer Date Record ed Do you have trouble paying your heating or elect ricity bill? No 08/08/2022 Transportation Answer Date Recorded Has the lack of transportati on kept you from medical appointments or from getting medications? Yes 08/08/2022 Unemployment Answer Date Recorded Are you currently unemployed or working on a part-time or temporary basis, and looking for work? No 08/08/2022 Digital Access Answer Date Recorded No 08/08/2022 Yes 08/08/2022 Do you have reliable internet access at home? Ye s 08/08/2022 Do you have a device (e.g., phone, tablet, computer) with a working camera? Yes 08/08/2022 Comments No Sex and Gender Information Value [...] documented as of this encounter Care Teams Adaptive Physical Education Specialist Relationship Specialty Start Date End Date Natasha Vega MD [address] [place] [address] PCP - General Family Medicine 06/25/19 documented as of this encounter Additional Source Comments The information contained in this document represents components of the legal health record. It is not the complete legal health record.[facility]
--- OUTSIDE RECORDS SUMMARY | 2024-11-21 12:57 | XMS_ITS | Encounter Summary ---
Author Organization [facility] Address [address] [facility] [address] [place] [address] Phone Care Team Providers Care Clerical Specialist Name Role Phone Natasha Vega MD Primary Care Provider Geraldine Hahn MD Unavailable [phone] Encounter Details Date Type Department Care Team (Late st Contact Info) Description 02/09/2021 Procedure Pass [facility], [facility] [address] [place] [address] Social History Tobacco Use Types Packs/Day Years [...] documented as of this encounter Care Teams Clerical Specialist Relationship Specialty Start Date End Date Natasha Vega MD 15 [facility] [address] [place] [address] PCP - General Family Medicine 06/25/19 Geraldine Hahn MD 22 [facility] [place] [address] Insurance Assigned Provider 08/12/22 1 documented as of this encounter Additional Source Comments The information contained in this document represents components of the legal health record. It is not the complete legal health record.[facility]
--- OUTSIDE RECORDS SUMMARY | 2024-11-21 12:57 | XMS_ITS | Encounter Summary ---
Author Organization [facility] Address [address] [place] [address] Phone Care Team Providers Care Meal Temperer Name Role Phone Natasha Vega MD Primary Care Provider + [phone] Encounter Details Date Type Department Care Team (Late st Contact Info) Description 04/28/2024 Procedure Pass [facility], [facility] [address] [place] [address] Social History Tobacco Use Types Packs/Day Years [...] high school, GED, job training, learning the [place]oc[place] language, technical skills, or developing parenting skills)? [...] filedocumented in this encounter Additional Health Concerns Assessment Noted Time PHQ-9 Depression Total Score: 18 022 10:21 AM EST PHQ-2 Depression Total Score: 2 08/13/19 24 2:13 PM EDT documented as of this encounter Care Teams Meal Temperer Relationship Specialty Start Date End Date Natasha Vega MD [address] [address] [email or web address] PCP - General Family Medicine 06/25/19 documented as of this encounter Additional Source Comments The information contained in this document represents components of the legal health record. It is not the complete legal health record.[facility]
--- OUTSIDE RECORDS SUMMARY | 2024-11-21 12:57 | XMS_ITS | Encounter Summary ---
Author Organization [facility] Address [facility]ly [facility] [employer] [facility] [address] [place] [address] Phone Care Team Providers Care Configuration Consultant Name Role Phone Natasha Vega MD Primary Care Provider Geraldine Hahn MD Unavailable [phone] Encounter Details Date Type Department Care Team (Late st Contact Info) Description 02/21/2021 Ancillary Orders [facility],Outside Imaging [address] [place] [address] System, Provider Not In, PhD [address] [address] Social History Tobacco Use Types Packs/Day Years [...] documented as of this encounter Results * MRI Brain Outside (No Interpretation) (08/27/2017 12:00 AM EDT) Narrative SYSTEMGENERATED, DOCUMENTATION - 02/21/2021 10:34 AM EST This study is for PACS storage only and not for interpretation. us Provider Not In System PhD IMG OUTSIDE IMAGING W /OUT INTERPRETATION Final Result documented in this encounter Visit Diagnoses Not on filedocumented in this encounter Additional Health Concerns Infection Onset Date Last Indicated Resolved Time CoV-Presumed 07/15/2021 07/15/2021 08/05/2021 1:23 AM EDT CoV-Risk 02/22/2024 02/22/2024 03/04/2024 1:22 AM EST documented as of this encounter Care Teams Configuration Consultant Relationship Specialty Start Date End Date Natasha Vega MD 15 [facility] [address] [place] [address] PCP - General Family Medicine 06/25/19 Geraldnie Hahn MD 22 [facility] [place] [address] Insurance Assigned Provider 08/12/22 1 documented as of this encounter Additional Source Comments The information contained in this document represents components of the legal health record. It is not the complete legal health record.[facility]
--- OUTSIDE RECORDS SUMMARY | 2024-11-21 12:57 | XMS_ITS | Encounter Summary ---
Author Organization [facility] Address [address] [place] [address] Phone Care Team Providers Care Bindery Helper Name Role Phone Natasha Vega MD Primary Care Provider + [phone] Encounter Details Date Type Department Care Team (Late st Contact Info) Description 08/06/2023 Procedure Pass [facility], [address] [address] Social History Tobacco Use Types Packs/Day Years [...] high school, GED, job training, learning the [place] language, technical skills, or developing parenting skills)? [...] housing situation today? I have valerie mercado 08/08/2022 How many times have you move [...] documented as of this encounter Care Teams Bindery Helper Relationship Specialty Start Date End Date Natasha Vega MD [address] [place] [address] PCP - General Family Medicine 06/25/19 documented as of this encounter Additional Source Comments The information contained in this document represents components of the legal health record. It is not the complete legal health record.[facility]
--- OUTSIDE RECORDS SUMMARY | 2024-11-21 12:57 | XMS_ITS | Encounter Summary ---
Author Organization [facility] Address [address] [place] [address] Phone Care Team Providers Care Horticultural Farmworker Name Role Phone Natasha Vega MD Primary Care Provider Geraldine Hahn MD Unavailable [phone] Encounter Details Date Type Department Care Team (Late st Contact Info) Description 03/15/2020 Ancillary Orders [facility] [place] [facility] [address] [facility] [address] [place] [address] Natasha Vega MD [address] [facility] [address] [place] [address] [email or web address] Instability of left knee joint Social History Tobacco Use Types Packs/Day Years [...] documented as of this encounter Results * XR KNEE 4 OR MORE VIEWS (BILATERAL) (03/15/2020 3:56 PM EST) Anatomical Region Laterality Modality Knee Bilateral, Knee Right, Knee Left Computed Radiography 03/15/2020 4:01 PM EST Impressions 03/15/2020 4:03 PM EST No changes of inflammatory or degenerative arthropathy or other specific source of pain in either knee. Narrative 03/15/2020 4:03 PM EST Weightbearing AP views of both knees as well as tunnel, lateral, and sunrise views of each knee obtained. No prior. Right knee: Maintained joint spaces. Minor demineralization. No effusion or chondrocalcinosis. No bony lesions. Trochlear groove shallow. Left knee: Maintained joint spaces. No chondrocalcinosis, spurring or sclerosis. No significant effusion. No bony lesions. Some of degrees of mild demineralization. Procedure Note Reyes Albert MD - 03/15/2020 Weightbearing AP views of both knees as well as tunnel, lateral, andsunrise views of each knee obtained. No prior. Right knee: Maintained joint spaces. Minor demineralization. No effusionor chondrocalcinosis. No bony lesions. Trochlear groove shallow. Left knee: Maintained joint spaces. No chondrocalcinosis, spurring orsclerosis. No significant effusion. No bony lesions. Some of degrees ofmild demineralization. IMPRESSION: No changes of inflammatory or degenerative arthropathy or other specificsource of pain in either knee. 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 documented in this encounter Additional Health Concerns Infection Onset Date Last Indicated Resolved Time CoV-Risk 06/08/2020 06/09/2020 06/18/2020 1:24 AM EDT CoV-Presumed 07/15/2021 07/15/2021 08/05/2021 1:23 AM EDT CoV-Risk 02/22/2024 02/22/2024 03/04/2024 1:22 AM EST documented as of this encounter Care Teams Horticultural Farmworker Relationship Specialty Start Date End Date Natasha Vega MD [address] [place] [address] [place] [address] PCP - General Family Medicine 06/25/19 Geraldine Hahn MD [address] [facility] [place] [address] Insurance Assigned Provider 08/12/22 1 documented as of this encounter Additional Source Comments The information contained in this document represents components of the legal health record. It is not the complete legal health record.[facility]
--- OUTSIDE RECORDS SUMMARY | 2024-11-21 12:57 | XMS_ITS | Encounter Summary ---
Author Organization [facility] Address [address] [place] [address] Phone Care Team Providers Care Mower Mechanic Name Role Phone Natasha Vega MD Primary Care Provider + [phone] Encounter Details Date Type Department Care Team (Late st Contact Info) Description 04/28/2024 Procedure Pass [facility], [facility] [address] [place] [address] Social History Tobacco Use Types Packs/Day Years [...] high school, GED, job training, learning the Belgian language, technical skills, or developing parenting skills)? [...] documented as of this encounter Care Teams Mower Mechanic Relationship Specialty Start Date End Date Natasha Vega MD [address] [address] [email or web address] PCP - General Family Medicine 06/25/19 documented as of this encounter Additional Source Comments The information contained in this document represents components of the legal health record. It is not the complete legal health record.[facility]
--- OUTSIDE RECORDS SUMMARY | 2024-11-21 12:57 | XMS_ITS | Encounter Summary ---
Author Organization [facility] Address [address] [place] [address] Phone Care Team Providers Care Line Cook Name Role Phone Natasha Vega MD Primary Care Provider + [phone] Encounter Details Date Type Department Care Team (Late st Contact Info) Description 08/30/2023 Procedure Pass [facility], [facility] [address] [place] [address] Social History Tobacco Use Types Packs/Day Years [...] high school, GED, job training, learning the Samoan language, technical skills, or developing parenting skills)? [...] documented as of this encounter Care Teams Line Cook Relationship Specialty Start Date End Date Natasha Vega MD [address] [place] [address] PCP - General Family Medicine 06/25/19 documented as of this encounter Additional Source Comments The information contained in this document represents components of the legal health record. It is not the complete legal health record.[facility]
--- OUTSIDE RECORDS SUMMARY | 2024-11-21 12:57 | XMS_ITS | Encounter Summary ---
Author Organization [facility] Address [address] [facility] [facility] [address] [place] [address] Phone Care Team Providers Care Sales Advisor Name Role Phone Natasha Vega MD Primary Care Provider [phone] Encounter Details Date Type Department Care Team (Late st Contact Info) Description 06/12/2024 Ancillary Orders [facility] [place] [facility] [address] [facility] [address] [place] [address] Natasha Vega MD [address] [facility] [address] [place] [address] [email or web address] Mastodynia (Primary Dx) Social History Tobacco Use [...] high school, GED, job training, learning the [place]ore[place] language, technical skills, or developing parenting skills)? [...] of this encounter Results * BI MAMMOGRAM DIAGNOSTIC WITH TOMOSYNTHESIS WITH [...] Noted Time PHQ-9 Depression Total Score: 18 04/12/ 022 10:21 AM EST PHQ-2 Depression Total Score: 2 08/13/19 24 2:13 PM EDT documented as of this encounter Care Teams Sales Advisor Relationship Specialty Start Date End Date Natasha Vega MD [address] [place] [address] PCP - General Family Medicine 06/25/19 documented as of this encounter Additional Source Comments The information contained in this document represents components of the legal health record. It is not the complete legal health record.[facility]
--- OUTSIDE RECORDS SUMMARY | 2024-11-21 12:57 | XMS_ITS | Encounter Summary ---
Author Organization [facility] Address [address] [place] [address] Phone Care Team Providers Care Vice Investigator Name Role Phone Natasha Vega MD Primary Care Provider + [phone] Encounter Details Date Type Department Care Team (Late st Contact Info) Description 05/24/2023 Procedure Pass [facility], [facility] [address] [place] [address] Social History Tobacco Use Types Packs/Day Years [...] high school, GED, job training, learning the Sierra Leonean language, technical skills, or developing parenting skills)? [...] documented as of this encounter Care Teams Vice Investigator Relationship Specialty Start Date End Date Natasha Vega MD [address] [place] [address] PCP - General Family Medicine 06/25/19 documented as of this encounter Additional Source Comments The information contained in this document represents components of the legal health record. It is not the complete legal health record.[facility]
[2024-11-21 14:38] VITALS: BP 133/70; PULSE 96; RESP 18; TEMP 36.3; O2SAT 94
== END 2024-11-21 14:38 | disposition home or self-care (01) ==
PROVIDERS: Emergency Provider Emergency Medicine Emergency Medical Services; PCP Family Medicine
DX: S09.90XA Unspecified injury of head, initial encounter (principal); R51.9 Headache, unspecified; R42 Dizziness and giddiness; Y92.211 Elementary school as the place of occurrence of the external cause; Y93.9 Activity, unspecified; Y04.2XXA Assault by strike against or bumped into by another person, initial encounter; Y99.0 Civilian activity done for income or pay; Z79.899 Other long term (current) drug therapy
CPT/HCPCS: 70450; 99282; 99284

== ENCOUNTER → 2024-11-21 12:34 | Outpatient (BNV) | payer OTHER, SELFPAY | PROVIDERS: Emergency Provider Emergency Medicine Emergency Medical Services; PCP Family Medicine; Visit Provider Radiology Diagnostic Radiology | DX: S09.90XA Unspecified injury of head, initial encounter (principal) | CPT/HCPCS: 70450 ==

== ENCOUNTER 2025-01-26 08:37 | Outpatient (AMB) | payer OTHER, SELFPAY ==
--- OUTSIDE RECORDS SUMMARY | 2025-01-26 08:59 | XMS_ITS | Continuity of Care Document ---
Author Organization [facility] Address [address] [place], [place] Phone [phone] Care Team Providers Care Marketing And Development Coordinator Name Role Phone Natasha Vega MD Care [...] SIG Qnty Indications Order ing Provider Date Eduawqylwc67bo Tablets take 1 tablet by mouth twice a day(start with one a day) 60tabs Giselle Trammell M.D. 12/17/2024 Vit B12 Drops qd Giselle Trammell M.D. 12/11/2024 Phentermine ETQ96tw Capsules 1 capsule by mouth every day 30caps Z68.41 Giselle Trammell M.D. 09/08/2024 Metformin HCL GL809qm Tablets ER 24HR take 3 tablets by mouth every day 270tabs Giselle Trammell M.D. 01/11/2024 Quetiapine Vvvlaiqi39ys Tablets 1@hs Unknown 00//0 000 Doxazosin Xkhlegtl0lf Tablets Take 1-2 Tablets By Mouth Every Night AT Bedtime Unknown Zyrtec Xiqzhve94ex Tablets tab by mouth every day Unknown Vit D3 25mcg x1/wk Unknown 00 Fluticasone Dqygqczveb41noh/Act Suspension [place] 2 Sprays By Nasal Route Daily Unknown Duloxetine XSL94zt Caps DR Part Take 1 Capsule By Mouth Daily In The Morning With Food Unknown Kglbxdujhzwv9ip Tablets Take 1 Tablet By Mouth Once A Day (With 5 MG Tablet) Unknown Duloxetine WUA07uv Caps DR Part Take 1 Capsule By Mouth Every Afternoon With Food. Total Daily Dose Of 90MG Unknown Oerkdhpttb137mw Capsules Take 2 Capsules By Mouth 3 Times A Day. Natasha Vega MD Urtstpegqgnx2zd Tablets Take 1 Tablet By Mouth Once A Day With 2MG. Total Daily Dose Of 7MG Unknown Diclofenac Sodium1% Gel Natasha Vega MD History Medications Zepbound2.5mg/0.5ML Solution Auto-Inject inject 2.5mg subcutaneously once a week 2ml Andres Trammell M.D. 12/11/2024 - 12/17/2024 Phentermine EVF35hh Capsules 1 capsule by mouth every day 30caps Andres Trammell M.D. 07/08/2024 - 09/08/2024 Jouxzm9eq/0.5ML Solution Auto-Inject inject 1 mg subcutanously once a week 2ml Andres Trammell M.D. 06/27/2024 - 07/08/2024 Wegovy0.5mg/0.5ML Solution Auto-Inject take 0.5mg subcutanously once a week 2ml Andres Trammell M.D. 06/02/2024 - 06/27/2024 Wegovy0.25mg/0.5ML Solution Auto-Inject inject 0.25mg subcutaneously once a week 2ml Andres Trammell M.D. 01/02/2024 - 06/02/2024 Doxazosin Jtmbdfos9bb Tablets Take 1 Tablet By Mouth Every Day AT Night Unknown - 04/03/[address] Unknown - 01/02/2024 Rrdehqksdd5cq Tablets Unknown - 01/02/2024 Quetiapine Rpvfuwuk57cl Tablets 1@hs Unknown - 04/03/[address] Take 1 Capsule By Mouth Every Day Unknown - 01/02/2024 Jyyeipfryi73xw Tablets Unknown - 01/02/2024 Morphine Uczmehe44up Tablets Take 1 Tab By Mouth Every 6 Hours as Needed For Pain Natasha Vega MD - 01/02/2024 Csqqnwhlyrx-Mrzgkmr524-4 0mg/5ML Solution Take 5 [place] By Mouth 3 Times A Day as Needed For Cough Unknown - 01/02/2024
--- NOTE | 2025-01-26 09:00 | A.OFFVIS_ITS ---
Vital Signs 01/26/25 09:01 Height 5 ft 3 in Weight 270 lb BMI 47.8 BP 134/88 Blood Pressure Location Lt radial Position Sitting Respiration 16 Pulse 95 Pulse Source Pulse Oximeter Pulse Oximetry (%) 96 Oxygen Delivery Method Room Air Intake Visit Reasons: Fibromyalgia Bench Repair Technician Required: No Accompanied by: Spouse Allergies mint Allergy (Verified 01/26/25 09:03) Itching oxycodone Adverse Reaction (Verified 01/26/25 09:03) Hallucinations Medication List - Last Reconciled 01/26/25 by Sabine Kearney LPN aripiprazole (Abilify) 7.5 mg PO BEDTIME cetirizine (Zyrtec) 10 mg PO BEDTIME doxazosin 1.5 mg PO BEDTIME duloxetine 60 mg PO DAILY gabapentin 200 - 300 mg PO TID levonorgestrel (Mirena) intrauterine metformin ER 1,500 mg PO DAILY phentermine 30 mg PO DAILY quetiapine (Seroquel) 25 mg PO BEDTIME ramelteon 8 mg PO BEDTIME PRN topiramate 25 mg PO BID HPI HPI Fibromyalgia: Details: History of Present Illness The patient is a 49-year-old individual presenting with generalized pain due to fibromyalgia. The patient was first diagnosed with fibromyalgia at the age of 21 and has been experiencing symptoms for approximately 30 years. The patient reports that the pain is generalized and affects the entire body, significantly interfering with sleep and movement. Initially, the patient was advised against taking medications due to concerns about developing tolerance at a young age. The patient began taking gabapentin a couple of years ago and has been on duloxetine since 2019. Despite these interventions, the patient continues to feel as though they have been hit by a truck daily, indicating persistent and severe pain. 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 The patient engages in daily walking and attends weekly therapy sessions, indicating an active approach to managing the condition. Pain Description - Onset: Diagnosed with fibromyalgia at age 21, ongoing for 30 years - Quality: Described as feeling hit by a truck daily - Location: Generalized pain affecting the entire body - Exacerbating factors: Physical activity and stress from work - Interference: Pain interferes with sleep and movement Physical Exam - Appears afebrile. - Alert and oriented. - Mood and affect appropriate. - Follows and participates in conversation appropriately. - Respiratory effort is unlabored. Pain Management - Affect: Pain significantly impacts sleep and daily functioning - Analgesia: Currently taking gabapentin and duloxetine - Activities of Daily Living: Continues to work full-time and engages in daily walking [facility] Medical History (Updated 01/27/25 @ 14:14 by Byron Rosales MD) Insomnia Severe recurrent major depression with psychotic features Recurrent major depression-severe PTSD (post-traumatic stress disorder) Rotator cuff dysfunction Arthritis Fibromyalgia Surgical History History of sleeve gastrectomy Hx of cholecystectomy Social History (Updated 04/30/24 @ 09:09 by Ira Mar DO) Household Members: Spouse Patient Tobacco Use Status: Never used Tobacco Physical Exam Vital Signs: Last Vital Signs Pulse 95 01/26/25 09:01 Resp 16 01/26/25 09:01 BP 134/88 01/26/25 09:01 Pulse Ox 96 01/26/25 09:01 Oxygen Delivery Method Room Air 01/26/25 09:01 BMI result Body Mass Index 47.8 Assessment & Plan Assessment & Plan (1) PTSD (post-traumatic stress disorder): Code(s): F43.10 - Post-traumatic stress disorder, unspecified Category: Medical (2) Fibromyalgia: Code(s): M79.7 - Fibromyalgia Category: Medical Plan Plan Patient was informed and verbally consented to the use of an ambient scribe for clinic note documentation during this visit. 1. Fibromyalgia - Continue current medications: gabapentin and duloxetine - Consider non-pharmacological interventions such as massage, swimming, and heat therapy - Explore behavioral interventions specific for pain management Discussion Notes During the consultation, I discussed with the patient the chronic nature of fibromyalgia and the importance of a multimodal approach to management. We reviewed the current medications, gabapentin and duloxetine, and their role in managing symptoms despite limited evidence of efficacy. I emphasized the potential benefits of non-pharmacological treatments such as massage, swimming, and heat therapy, as well as the importance of behavioral interventions. We also discussed the possibility of trying supplements like alpha-lipoic acid and curcumin. I encouraged the patient to consider consulting with a pain psychologist to trial behavioral strategies for improved coping and pain processing. Patient Instructions - Continue taking gabapentin and duloxetine as prescribed - Consider incorporating massage, swimming, and heat therapy into your routine - Explore behavioral interventions for pain management - Look into supplements like alpha-lipoic acid and curcumin - Consider consulting with a pain psychologist for additional support Coding Level of Care Code New Pt Level 4 (02350) Diagnoses PTSD (post-traumatic stress disorder) F43.10 Fibromyalgia M79.7
[2025-01-26 09:01] VITALS: BP 134/88; PULSE 95; RESP 16; O2SAT 96; BMI 47.8
== END 2025-01-26 09:45 | disposition home or self-care (01) ==
LOC: HO.PMC 08:37
PROVIDERS: PCP Family Medicine; Referring Provider Family Medicine; Visit Provider Internal Medicine
DX: M79.7 Fibromyalgia (principal); F43.10 Post-traumatic stress disorder, unspecified
CPT/HCPCS: 99204